=== PATIENT | male | born 1950 | race Caucasian/White ===

== ENCOUNTER 2020-07-29 08:30 | Outpatient (CLI) | payer MEDICARE, OTHER, SELFPAY ==
--- NOTE | ~2020-07-29 | CT_ITS ---
EXAMINATION: CT abdomen wo/w con DATE: 07/29/2020 09:37 INDICATION: Right adrenal mass. TECHNIQUE: Computed tomography (CT) of the abdomen and pelvis was performed without and with 100 mL O mnipaque-350 intravenous contrast. Post contrast imaging was obtained in both early and delayed phase following a standard adrenal mass protocol. Automated exposure control and iterative reconstruction technique were employed. The dose-length product was 1810.98 mGy-cm. COMPARISON: 12/04/2016 FINDINGS: Lung bases are clear. Heart size is normal. Atherosclerotic coronary artery calcific location and aor tic valve calcific lesion. No pericardial or pleural effusion. Again seen is a large gallstone within a normal-appearing gallbladder. No gallbladder wall thickening or pericholecystic inflammatory schwarz e to suggest acute cholecystitis. No intra or extrahepatic biliary ductal dilation. Pancreas, spleen, left adrenal gland and bilateral kidneys are normal. 2.1 m right adrenal mass with attenuation on no ncontrast, early and delayed phases of 12, 74 and 30 6HU respectively using absolute washout of 61% a nd relative washout of 51%, all findings diagnostic of adenoma. There are few scattered colonic diver ticula without adjacent inflammatory change to suggest diverticulitis. The appendix and visualized sm all bowel is unremarkable. Stable appearance of a nonspecific carlos mesentery with groundglass halo s urrounding several normal sized mesenteric lymph nodes. No pathologically enlarged abdominal lymphade nopathy. Moderate lumbar spondylosis. There are bridging osteophytes at multiple levels in the spine, consistent with diffuse idiopathic skeletal hyperostosis (DISH). IMPRESSION: 1. Unchanged 2 cm right adrenal adenoma with characteristic low-attenuation and contrast washout. 2. Cholelithiasis. 3. Nonspecific carlos appearance to the small bowel mesentery which given lack of interval change is o f doubtful clinical significance. Reviewed, dictated and finalized at location B. IER SUPERVISOR IMPRESSION: 1. Unchanged 2 cm right adrenal adenoma with characteristic low-attenuation and contrast washout. 2. Cholelithiasis. 3. Nonspecific carlos appearance to the small bowel mesentery which given lack o f interval change is of doubtful clinical significance.
[2020-07-29 09:06] LABS: Estimated Glomerular Filt Rate > 60
== END 2020-07-29 08:31 | disposition home or self-care (01) ==
PROVIDERS: PCP Internal Medicine; Visit Provider Nurse Practitioner
DX: E27.8 Other specified disorders of adrenal gland (principal); K80.20 Calculus of gallbladder without cholecystitis without obstruction; D35.01 Benign neoplasm of right adrenal gland
CPT/HCPCS: 74170; Q9967

== ENCOUNTER 2023-04-02 10:19 | Outpatient (CLI) | payer MEDICARE, OTHER, SELFPAY ==
--- NOTE | ~2023-04-02 | XR_ITS ---
EXAMINATION: XR lumbar spine 2-3V DATE: 04/02/2023 10:34 INDICATION: Low back pain TECHNIQUE: Anteroposterior and lateral views of the lumbar spine, and cone-down lateral view of the l umbosacral junction were obtained. COMPARISON: 04/06/2019 FINDINGS: There are 3 mm of stable retrolisthesis of L2 on L3 and L3 on L4. The vertebral body height s are maintained. There is moderate loss of intervertebral disc space height at L4-5. There is mild l oss of disc space height at L2-3 and L3-4. Small degenerative osteophytes project from the anterior e ndplates of multiple vertebral bodies. There is moderate facet joint osteoarthritis of the lower lumb ar spine. Mild hip osteoarthritis is noted. . IMPRESSION: 1. Moderate lumbar spondylosis without acute findings or significant interval change. Reviewed, dictated and finalized at location L. USION OPERATOR IMPRESSION: 1. Moderate lumbar spondylosis without acute findings or significant interval c terrie.
== END 2023-04-02 10:20 ==
PROVIDERS: PCP Internal Medicine; Visit Provider Nurse Practitioner
DX: M43.06 Spondylolysis, lumbar region (principal)
CPT/HCPCS: 72100

== ENCOUNTER 2023-04-02 10:36 | Outpatient (CLI) | payer MEDICARE, OTHER, SELFPAY ==
[2023-04-02 19:58] LABS: Alanine Aminotransferase 23 U/L (6-50); Albumin Level 4.3 g/dL (3.5-5.1); Alkaline Phosphatase 104 U/L (38-126); Anion Gap 3 mmol/L (8-16); Aspartate Amino Transferase 36 U/L (17-59); Blood Urea Nitrogen 15 mg/dL (9-20); Calcium 9.4 mg/dL (8.4-10.2); Carbon Dioxide 31 mmol/L (22-30); Chloride 103 mmol/L (98-107); Cholesterol 215 mg/dL (0-200); Estimated Glomerular Filt Rate > 60; Glucose 104 mg/dL (65-110); HDL Direct 39 mg/dL; Potassium 4.3 mmol/L (3.4-5.0); Sodium 137 mmol/L (137-145); Triglycerides 133 mg/dL (<150)
[2023-04-02 20:11] LABS: Creatinine Urine 283.5 mg/dL
[2023-04-02 20:13] LABS: LDL Cholesterol Direct 132 mg/dL
[2023-04-02 20:18] LABS: MALB Creatinine Ratio 8.7 mg/g (0-30); Microalbumin Urine Random 24.7 mg/L (0-16.7)
[2023-04-02 20:21] LABS: Prostate Specific Antigen 0.9 ng/mL (< OR = 4.0)
[2023-04-02 20:43] LABS: Basophils Absolute Auto 0.1 K/mm3 (0.0-0.1); Eosinophils Absolute Auto 0.3 K/mm3 (0-0.3); Eosinophils Percent Auto 3.1 % (0-4.4); Hematocrit 48.4 % (42.0-52.0); Hemoglobin 14.8 g/dL (14.0-18.0); Immature Granulocyte Absolute 0.02 K/mm3 (0.00-0.031); Immature Granulocyte Percent A 0.3 % (0-0.5); Lymphocytes Absolute Auto 2.11 K/mm3 (0.9-3.2); Lymphocytes Percent Auto 26.4 % (18.3-44.2); Mean Corpuscular HGB Conc 30.6 g/dl (32-36); Mean Corpuscular Hemoglobin 27.1 pg (26-34); Mean Corpuscular Volume 88.5 fl (80-100); Mean Platelet Volume 10.5 fl (7.4-10.4); Monocytes Absolute Auto 0.8 K/mm3 (0.1-0.6); Monocytes Percent Auto 9.5 % (2.6-8.5); Neutrophils Absolute Auto 4.8 K/mm3 (1.3-6.7); Neutrophils Percent Auto 59.7 % (45.5-73.1); Platelet Count Result 275 k/mm3 (150-375); Red Blood Count 5.47 M/mm3 (4.6-6.20); Red Cell Distribution Width 13.7 % (11.5-14.5)
[2023-04-02 21:20] LABS: Hemoglobin A1C 5.7 % (<5.7)
== END 2023-04-02 10:37 | disposition home or self-care (01) ==
PROVIDERS: PCP Internal Medicine; Visit Provider Nurse Practitioner
DX: Z12.5 Encounter for screening for malignant neoplasm of prostate (principal); R73.9 Hyperglycemia, unspecified; I10 Essential (primary) hypertension; R73.03 Prediabetes
CPT/HCPCS: 36415; 80053; 80061; 82043; 83036; 84153; 85025; G0103

== ENCOUNTER 2024-02-11 12:30 | Outpatient (CLI) | payer MEDICARE, OTHER, SELFPAY ==
--- NOTE | ~2024-02-11 | XR_ITS ---
EXAMINATION: XR ankle LT min 3V DATE: 02/11/2024 12:47 INDICATION: Left ankle pain and lateral sided abrasion/posterior TECHNIQUE: Anteroposterior, oblique, mortise, and lateral views of the left ankle were obtained. COMPARISON: None. FINDINGS: Internal fixation at the left ankle. This includes a lateral plate and screws and interfragmentary sc rew, the latter at the distal metaphyseal region of the left fibula likely for fixation of a healed f racture. One of the screws extends across the distal tibiofibular syndesmosis into the distal tibial metaphysis. There are also a pair of metallic buttons at either side of the lucent tract extending ac ross the metaphyseal regions of both the distal tibia and fibula for a tightrope type syndesmotic fix ation. No evident instrumentation failure. Alignment is essentially anatomic. No acute fracture. Ther e is osteoarthritis at the left ankle with mild to moderate nonuniform anterior and lateral predomina nt joint space narrowing. There is also a shallow concavity along the medial side of the medial talar dome suggesting a chronic collapsed osteochondral lesion. Small Achilles calcaneal spur and moderate -sized plantar calcaneal spur. There are also few heterotopic ossicles at the plantar aponeurosis. Th ere is focal soft tissue swelling overlying the lateral malleolus. IMPRESSION: 1. Internal fixation at the distal fibular as well as a distal tibiofibular syndesmotic fixation as d etailed above. No acute osseous abnormality. 2. Likely secondary mild to moderate left ankle osteoarthritis with suggestion of a chronic collapsed osteochondral lesion along the medial margin of the talar dome. Reviewed, dictated and finalized at location B. IMPRESSION: 1. Internal fixation at the distal fibular as well as a distal tibiofibular syn desmotic fixation as detailed above. No acute osseous abnormality. 2. Likely secondary mild to moderate left ankle osteoarthritis with suggestion of a chronic collapsed osteochondral lesion along the medial margin of the van r dome.
== END 2024-02-11 12:31 | disposition home or self-care (01) ==
PROVIDERS: PCP Internal Medicine; Visit Provider Nurse Practitioner
DX: S90.529A Blister (nonthermal), unspecified ankle, initial encounter (principal); X58.XXXA Exposure to other specified factors, initial encounter; Z98.890 Other specified postprocedural states
CPT/HCPCS: 73610

== ENCOUNTER 2024-06-24 13:42 | Outpatient (CLI) | payer MEDICARE, OTHER, SELFPAY ==
--- OUTSIDE RECORDS SUMMARY | 2024-06-24 14:32 | XMS_ITS | Referral Summary ---
Author Organization [facility] Address [address] [place] [address] Care Team Providers Care Diesel Retrofit Installer Name Role Phone Michel Collins DO Primary Care Provider [phone] Abhishek Forde MD Unavailable [phone] Amarjit Kelly MD Unavailable Artem White MD Unavailable [phone] RuddTyler MD Unavailable [phone] Allergies No known active allergies Medications lisinopril (PRINIVIL,ZESTRIL) 20 mg tabletIndications: hypertension Take 1 tablet (20 mg total) by mouth 2 (two) times a day 07/01/19 18 Active atorvastatin (LIPITOR) 10 mg tabletIndications: hyperlipidemia Take 1 tablet (10 mg total) by mouth every morning 07/31/19 20 Active polyethylene glycol (MIRALAX) 17 gram packetIndications: constipation Take 1 packet (17 g total) by mouth daily 30 packet 07/19/19 21 Active Additional Information Patient not taking.Reported on 12/31/2022 venlafaxine XR (EFFEXOR-XR) 75 mg 24 hr capsuleIndications :Anxiety with Depression Take 1 capsule (75 mg total) by mouth every morning 09/13/19 21 Active naproxen sodium (Aleve) 220 mg capsuleIndications :Pain Take 440 mg by mouth as needed Active HYDROcodone-acetam inophen ([place]) 5-325 mg per tabletIndications: Pain Take 1 tablet by mouth every 4 (four) hours as needed for pain 30 tablet 09/12/19 23 Active Additional Information Patient not taking.Reported on 12/25/2022 aspirin 325 mg enteric coated tablet Take 1 tablet (325 mg total) by mouth daily 30 tablet 09/12/19 23 Active Additional Information Patient not taking.Reported on 12/31/2022 ketorolac (TORADOL) 10 mg tablet Take 1 tablet (10 mg total) by mouth every 6 (six) hours as needed for pain 20 tablet 09/12/19 23 Active Additional Information Patient not taking.Reported on 12/25/2022 senna-docusate (PERICOLACE) 8.6-50 mg Take 1 tablet by mouth daily 30 tablet 09/12/19 23 Active Additional Information Patient not taking.Reported on 12/31/2022 polyethylene glycol (MIRALAX) 17 gram/dose powder Take 17 g by mouth 3 (three) times a day 1700 g 12/21/19 Active Additional Information Patient not taking.Reported on 12/25/2022 ondansetron ODT (ZOFRAN-ODT) 4 mg disintegrating tablet Take 1 tablet (4 mg total) by mouth every 8 (eight) hours as needed for nausea or vomiting 20 tablet 12/21/19 Active celecoxib (CeleBREX) 100 mg capsule Take 1 capsule (100 mg total) by mouth 2 (two) times a day 09/15/19 24 Active albuterol HFA (PROVENTIL HFA,VENTOLIN HFA,PROAIR HFA) 90 mcg/actuation inhalerIndications :Lower respiratory infection (e.g., bronchitis, pneumonia, pneumonitis, pulmonitis) Inhale 2 puffs every 6 (six) hours as needed for wheezing or shortness of breath 1 each 11/19/19 Active azithromycin (ZITHROMAX) 250 mg tabletIndications: Lower respiratory infection (e.g., bronchitis, pneumonia, pneumonitis, pulmonitis) Take 2 tablets the first day, then 1 tablet daily for 4 days. 6 tablet 11/19/19 24 Active benzonatate (TESSALON) 200 mg capsuleIndications :Lower respiratory infection (e.g., bronchitis, pneumonia, pneumonitis, pulmonitis) Take 1 capsule (200 mg total) by mouth 3 (three) times a day as needed for cough 30 capsule 11/19/19 24 Active Active Problems Problem Noted Date Diagnosed Date Abnormal CT scan, colon 12/25/2022 Assessment & Plan (12/25/2022 1:17 PM CDT): colonoscopy Trimalleolar fracture of ori jalloh, closed, left, initial encounter 09/05/2022 Overview (09/05/2022): Added automatically from request for surgery [id number] History of colonic polyps 09/13/2020 Overview (09/13/2020): Added automatically from request for surgery [id number] Enlarged prostate 08/05/2020 Overview (08/05/2020): Added automatically from request for surgery [id number] Abdominal pain 07/19/2020 Urinary retention due to benign prostatic hyperp lasia 07/19/2020 Constipation due to outlet dysfunction Assessment & Plan (09/13/2020 1:19 PM CDT): Plan to proceed with colonoscopy Leukocytosis 07/19/2020 Sepsis 07/19/2020 Urinary tract infection in male 11/25/2019 Central cord syndrome (CMS/HCC) 08/13/2019 Overview (08/14/2019): Added automatically from request for surgery [id number] Palpitations 08/31/2017 Assessment & Plan (08/31/2017 4:12 AM CDT): Currently resolved. There was associated lightheadedness. EKG showed sinus rhythm. Patient is currently on tele. Will continue to monitor. Trops negative x2. Patient may need Holter monitor at discharge. TSH was normal. HTN (hypertension) 08/31/2017 Assessment & Plan (08/31/2017 4:03 AM CDT): Blood pressure is controlled. Continue lisinopril b.i.d. with hold parameters. Anxiety 08/31/2017 Assessment & Plan (08/31/2017 4:07 AM CDT): Patient complains of being ? always anxious? 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 Patient is feeling overwhelmed. Patient advised to discuss his anxiety with his PCP regarding medications that will not cause significant drowsiness for his anxiety as he needs to wake up 3 times at night to turn his and his 's PCP regarding possible part-time caregiver as he currently is the only caregiver with no support. Chest pain Mesenteric panniculitis Assessment & Plan (09/13/2020 1:18 PM CDT): This has disappeared from the recent CT Immunizations Name Administration Dates Next Due Influenza, Trivalent, Adjuvanted, Intramuscular 03/19/2019 Influenza, Unspecified 02/24/2019 Social History Tobacco Use Types Packs/Day Years Used Date Smoking Tobacco: Never Smokeless Tobacco: Never Tobacco Cessation:Counseling Given: Not Answered Alcohol Use Standard Drinks/Week Comments No 0 (1 standard drink = 0.6 oz pur e alcohol) AUDIT-C Answer Date Recorded Frequency of Alcohol Consumption Not on file 01/01/2023 Q2: How many drinks containi ng alcohol do you have on a typical day when you are drinking? Patient does not drink Frequency of Binge Drinking Not on file 12/2022 Personal Safety Answer Date Recorded Have you ever been in or are you currently in a harmful physical or emotional relationship or is someone making you feel afraid or unsafe? 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 Gender Identity Not on file Sexual Orientation Not on file Last Filed Vital Signs Vital Sign Reading Time Taken Comments Blood Pressure 146/79 12/28/2023 11:21 AM CDT Pulse 78 12/28/2023 11:21 AM CDT Temperature 36.1 ??C (97 ??F) 12/28/2023 11:21 AM CDT Respiratory Rate 16 12/28/2023 11:21 AM CDT Oxygen Saturation 94% 12/28/2023 11:21 AM CDT Inhaled Oxygen Concentration - - Weight 86.2 kg (190 lb) 12/28/2023 11:21 AM CDT Height 167.6 cm (5' 6 ) 12/28/2023 11:21 AM CDT Body Mass Index 30.67 12/28/2023 11:21 AM CDT Plan of Treatment Not on file Medical Devices Implanted Type Area Credit Collection Associate Device Identifier Shelf Expiration Date Model / Serial / Lot Medline [employer] Plate Bone Medline Unite Straight Fibula Tibial 10 Hole [id number] - [id number] Implanted:Qty: 1 on 09/11/2022 by Tyler Contreras MD at [facility] Plate Left: Ankle Medline [employer] [id number] / / Med[employer] Screw Bone Medline Unite L12mm Od2.7mm Foot Ankle Nonlock [id number] - [id number] Implanted:Qty: 1 on 09/11/2022 by Tyler Contreras MD at [facility] Medicine Screw Left: Ankle [employer] [id number] / / [employer] Screw Bone Medline Unite L16mm Od4mm Ankle Cancellous [id number] - [id number] Implanted:Qty: 1 on 09/11/2022 by Tyler Contreras MD at [facility] Screw Left: Ankle Medline [employer] [id number] / / Med[employer] Screw 14mm 3.5mm Bone Medline Unite Foot Ankle Lock [id number] - [id number] Implanted:Qty: 1 on 09/11/2022 by Tyler Contreras MD at [facility] Screw Left: Ankle Medline [employer] [id number] / / Med[employer] Screw Bone Medline Unite L12mm Od3.5mm Foot Ankle Nonlock [id number] - [id number] Implanted:Qty: 3 on 09/11/2022 by Tyler Contreras MD at [facility] Screw Left: Ankle Medline [employer] [id number] / / [employer] Screw Bone Medline Unite L50mm Od3.5mm Nonsterile [id number] - [id number] Implanted:Qty: 1 on 09/11/2022 by Tyler Cnotreras MD at [facility] Screw Left: Ankle Medline [employer] [id number] / / [employer] Tightrope Knotless Kit Endoscopic Instrument Titanium Sterile Ar-8926t - [id number] Implanted:Qty: 1 on 09/11/2022 by Tyler Contreras MD at [facility] Left: Ankle [employer] Inc [id number] 05/26/2026 AR-[id number] / / [id number] [employer] Inc Arthrex Dx Fibertak Needle [place] Suture Sterile Latex Free Ar-8990st - [id number] Implanted:Qty: 1 on 09/11/2022 by Tyler Contreras MD at [facility] Left: Ankle [employer] [id number] 01/24/2027 AR-8990ST / / [id number] Procedures Procedure Name Priority Date/Time Associated Diagnosis Comments COLONOSCOPY 01/01/2023 7:26 AM CDT from Last 3 Months or Most Recently Relevant to Health Maintenance Results * COLONOSCOPY (01/01/2023 7:26 AM CDT) Anatomical Region Laterality Modality Other Narrative Procedure Note Michel Beltran MD - 01/01/2023 7:26 AM CDT [facility] Patient Name: Natalio Morrison Procedure Date: 01/01/2023 7:26 AM Date of : 1950 Admit Type: Outpatient Age: 72 Gender: Male Attending MD: Michel Beltran M.D. Room: [facility] ENDOSCOPY ROOM 2 Note Status: Finalized Patient Profile: Refer to note in patient chart for documentation of history and physical. Procedure: Colonoscopy Indications: Last colonoscopy: September 2020, Abnormal CT of the [place] Referring MD: Michel Collins D.O. Providers: Michel Beltran M.D. Impression: - Hemorrhoids found on perianal exam. - Two 3 to 4 mm polyps in the transverse colon, removed with a cold snare. Resected andretrieved. - Diverticulosis in the sigmoid colon, in the descending colon and in the transverse colon. - The examination was otherwise normal. Recommendation: - Discharge patient to home. - Resume previous diet. - Continue present medications. - Await pathology results. - Repeat colonoscopy in 5 years for surveillance. - Return to primary care physician as previously scheduled. Medicines: Propofol per Anesthesia Complications: No immediate complications. Estimated Blood Loss: Estimated blood loss: none. Procedure: Pre-Anesthesia Assessment: - This assessment was completed [Time ofAssessment] prior to the administration of sedation. The benefits, risks and alternatives of theprocedure and sedation were discussed and informed consentwas obtained. All questions were answered. Please referto the signed informed consent document in the medical record. The bowel preparation used was Miralax via single dose instruction. The bowel preparation used was bisacodyl tablets via single dose instruction.The scope was passed under direct vision. TheColonoscope [id number] was introduced through the anus and advanced to the the cecum, identified by appendiceal orifice and ileocecal valve. The colonoscopy was performed without difficulty. The patient tolerated the procedure well. The qualityof the bowel preparation was good. The ileocecalvalve, appendiceal orifice, and rectum werephotographed. Findings: Hemorrhoids were found on perianal exam. Two sessile polyps were found in the transverse colon. The polypswere 3 to 4 mm in size. These polyps were removed with a cold snare.Resection and retrieval were complete. Verification of patient identificationfor the specimen was done by the physician and nurse using the patient's name and date. Estimated blood loss was minimal. Multiple small and large-mouthed diverticula were found in thesigmoid colon, descending colon and transverse colon. The exam was otherwise without abnormality. Electronically signed by Michel Beltran M.D. Michel Beltran M.D. 01/01/2023 8:37:25 AM Number of Addenda: 0 Note Initiated On: 01/01/2023 7:26 AM Procedure Code(s): --- Professional --- 74427, Colonoscopy, flexible; with removal of tumor(s), polyp(s), or other lesion(s) by snare technique --- Technical --- 72663, Colonoscopy, flexible; with removal of tumor(s), polyp(s), or other lesion(s) by snare technique Diagnosis Code(s): --- Professional --- R93.3, Abnormal findings on diagnostic imaging of other parts of digestive tract K57.30, Diverticulosis of large intestine without perforation orabscess without bleeding D12.3, Benign neoplasm of transverse colon (hepatic flexure orsplenic flexure) K64.9, Unspecified hemorrhoids --- Technical --- R93.3, Abnormal findings on diagnostic imaging of other parts of digestive tract K57.30, Diverticulosis of large intestine without perforation orabscess without bleeding D12.3, Benign neoplasm of transverse colon (hepatic flexure orsplenic flexure) K64.9, Unspecified hemorrhoids CPT copyright 2020 [employer]. All rights reserved. The codes documented in this report are preliminary and upon memorandum statement clerk reviewmay be revised to meet current compliance requirements. Recognized by the [employer] for promoting quality in endoscopy Michel Beltran MD ENDOSCOPY PROCEDURES Final Re sult from Last 3 Months or Most Recently Relevant to Health Maintenance Insurance MEDICARE [facility] CHOICE PLUS MEDICARE [facility] CHOICE PLUS [address] [place] [phone] MEDICARE [employer] Advance Directives For more information, please contact: [phone] * Full Code (Latest Code Status on File) Date Activated Date Inactivated Comments 01/01/2023 7:27 AM 01/01/2023 1:38 PM * Full Code Date Activated Date Inactivated Comments 01/01/2023 7:27 AM 01/01/2023 7:27 AM * Full Code Date Activated Date Inactivated Comments 10/10/2020 9:42 AM 10/10/2020 3:40 PM * Full Code Date Activated Date Inactivated Comments 07/19/2020 1:56 AM 07/19/2020 10:56 PM * Full Code Date Activated Date Inactivated Comments 08/14/2019 11:42 AM 08/14/2019 10:57 PM Healthcare Agents on File Name Relationship Healthcare Agent Sherrie shea Communication Noa Morrison Spouse Health Care Agent Care Teams Diesel Retrofit Installer Relationship Specialty Start Date End Date Michel Collins DO PCP - General 08/25/16 Abhishek Forde MD [address] [place] [address] Consulting Physician Cardiology 08/31/17 Amarjit Kelly MD [address] [place] [address] Consulting Physician Psychiatry 08/31/17 Artem White MD [address] [place] [address] Consulting Physician Urology 07/19/20 Tyler Contreras MD [address] [place] [address] Consulting Physician Orthopedic Surgery 09/11/22
--- OUTSIDE RECORDS SUMMARY | 2024-06-24 14:32 | XMS_ITS | Clinical Summary ---
Author Organization [facility] Address [address] [place] [address] Care Team Providers Care Instructional Support Technician Name Role Phone Michel Collins DO Primary Care Provider [phone] Abhishek Forde MD Unavailable [phone] Amarjit Kelly MD Unavailable Artem White MD Unavailable AlvaradoTyler MD Unavailable [phone] Allergies No known active allergies Medications lisinopril [...] by mouth as needed Active HYDROcodone-acetam inophen (Thelma) 5-325 mg per tabletIndications: Pain Take 1 [...] (09/05/2022): Added automatically from request for surgery [id number] History of colonic polyps 09/13/2020 Overview (09/13/2020): Added automatically from request for surgery [id number] Enlarged prostate 08/05/2020 Overview (08/05/2020): Added automatically from request for surgery [id number] Abdominal pain 07/19/2020 Urinary retention due to benign prostatic hyperp lasia 07/19/2020 Constipation due to outlet dysfunction Assessment & Plan (09/13/2020 1:19 PM CDT): Plan to proceed with colonoscopy Leukocytosis 07/19/2020 Sepsis 07/19/2020 Urinary tract infection in male 11/25/2019 Central cord syndrome (CMS/HCC) 08/13/2019 Overview (08/14/2019): Added automatically from request for surgery [id number] Palpitations 08/31/2017 Assessment & Plan (08/31/2017 4:12 [...] Trivalent, Adjuvanted, Intramuscular 03/19/2019 Influenza, Unspecified 02/24/2019 Surgical History Surgery Date Site/Laterality Comments TONSILLECTOMY 05/27/1969 - 05/26/1970 Bilateral COLONOSCOPY 10/10/2020 CATARACT EXTRACTION W/ INTRAOCULAR LENS IMPLANT 05/27/2019 - 05/26/2020 Bilateral TRANSURETHRAL RESECTION OF PROSTATE 08/25/2020 SKIN CANCER EXCISION Skin CA neck s/p excision 1970s ANKLE FRACTURE SURGERY 05/27/2022 - 05/26/2023 Left COLONOSCOPY 01/01/2023 Medical History Medical History Date Comments Hypertension Dxd 2014 Hyperlipidemia Treated with sta tin GERD (gastroesophageal reflux disease) Anxiety Obesity History of skin cancer Skin CA n elizabeth s/p excision Family History Medical History Relation Name Comments Heart disease Father Anesthesia problems Other Relation Name Status Comments Father Other Social History Tobacco Use Types Packs/Day Years [...] on file 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 Gender Identity Not on file Sexual Orientation Not on file Obstetrics History Last Filed Vital Signs Vital Sign Reading [...] 12/28/2023 11:21 AM CDT Plan of Treatment Health Maintenance Due Date Last Done Comments Depression Screening 1950 Hepatitis C Screening 1950 DTaP/Tdap/Td Vaccine (1 - Tdap) 1960 Hepatitis B Screening 10/23/1967 Zoster Vaccine (1 of 2) 10/23/1999 Pneumococcal vaccine 65+ (1 of 1 - PCV) 2014 Well Visit 65+ 2014 Fall Risk Assessment 01/02/2024 01/01/2023 Influenza Vaccine (#1) 2024 9, 02/24/2019, 02/17/2017, Additional history exists Colon Cancer Screening-Colonoscopy 01/01/2033 01/01/2023, 10/10/2020 Colon Cancer Screening-CT Colonography Discontinued 01/01/2023, 10/10/2020 Colon Cancer Screening-DNA Stool Discontinued 01/02/20 23, 10/10/2020 Colon Cancer Screening-FIT Discontinued 01/01/2023, Colon Cancer Screening-Sigmoidoscopy Discontinued 01/01/2023, 10/10/2020 Medical Devices Implanted Type Area Boring Machine Set Up Operator Device Identifier Shelf Expiration Date Model / Serial / Lot Skemaz Plate Bone Medline Unite Straight Fibula Tibial 10 Hole [id number] - [id number] Implanted:Qty: 1 on 09/11/2022 by Tyler Contreras MD at [facility] Medicine Plate Left: Ankle [employer] [id number] / / [employer] Screw Bone Medline Unite L12mm Od2.7mm Foot Ankle Nonlock [id number] - [id number] Implanted:Qty: 1 on 09/11/2022 by Tyler Contreras MD at [facility] Screw Left: Ankle [employer] [id number] / / [employer] Screw Bone Medline Unite L16mm Od4mm Ankle Cancellous [id number] - [id number] Implanted:Qty: 1 on 09/11/2022 by Tyler Contreras MD at [facility] Screw Left: Ankle [employer] [id number] / / [employer] Screw 14mm 3.5mm Bone Medline Unite Foot Ankle Lock [id number] - [id number] Implanted:Qty: 1 on 09/11/2022 by Tyler Contreras MD at [facility] Screw Left: Ankle [employer] [id number] / / [employer] Screw Bone Medline Unite L12mm Od3.5mm Foot Ankle Nonlock [id number] - [id number] Implanted:Qty: 3 on 09/11/2022 by Tyler Contreras MD at [facility] Screw Left: Ankle [employer] [id number] / / [employer] Screw Bone Medline Unite L50mm Od3.5mm Nonsterile [id number] - [id number] Implanted:Qty: 1 on 09/11/2022 by Tyler Contreras MD at [facility] Screw Left: Ankle Medline TBS Inc [id number] / / [employer] Tightrope Knotless Kit Endoscopic Instrument Titanium Sterile Ar-[id number] - [id number] Implanted:Qty: 1 on 09/11/2022 by Tyler Contreras MD at [facility] Left: Ankle [employer] Inc [id number] 05/26/2026 AR-8926T / / [id number] Ar[employer]rex Inc Arthrex Dx Fibertak Needle Welch Suture Sterile Latex Free Ar-8990st - [id number] Implanted:Qty: 1 on 09/11/2022 by Tyler Contreras MD at [facility] Left: Ankle Ar[employer] Inc [id number] 01/24/2027 [id number] / / [id number] Procedures Procedure Name Priority Date/Time Associated Diagnosis Comments COLONOSCOPY 01/01/2023 7:26 AM CDT from Last 3 Months or Most Recently Relevant to Health Maintenance Results * COLONOSCOPY (01/01/2023 7:26 AM CDT) Anatomical Region Laterality Modality Other Narrative Procedure Note Michel Beltran MD - 01/01/2023 7:26 AM CDT [facility] Patient Name: Natalio Morrison Procedure Date: 01/01/2023 7:26 AM Date of : 1950 Admit Type: Outpatient Age: 72 Gender: Male Attending MD: Michel Beltran M.D. Room: [facility] ENDOSCOPY ROOM 2 Note Status: Finalized [...] scope was passed under direct vision. TheColonoscope [id number] was introduced through the anus and advanced [...] 7:26 AM Procedure Code(s): --- Professional --- 47395, Colonoscopy, flexible; with removal of tumor(s), polyp(s), or other lesion(s) by snare technique --- Technical --- 06784, Colonoscopy, flexible; with removal of tumor(s), polyp(s), [...] flexure) K64.9, Unspecified hemorrhoids CPT copyright 2020 [employer]. All rights reserved. The codes documented in this report are preliminary and upon gauge controller reviewmay be revised to meet current compliance requirements. Recognized by the [employer] for promoting quality in endoscopy Michel Beltran MD ENDOSCOPY PROCEDURES Final Re sult from Last 3 Months or Most Recently Relevant to Health Maintenance Insurance MEDICARE [facility] CHOICE PLUS MEDICARE [facility] CHO[facility] PLUS MEDICARE [facility] [employer] Advance Directives For more information, please contact: [phone] * Full Code (Latest Code Status on [...] Agents on File Name Relationship Healthcare Agent Relationshi p Communication Noa Prince Spouse Health Care Agent Care Teams Instructional Support Technician Relationship Specialty Start Date End Date Michel Collins DO PCP - General 08/25/16 Abhishek Forde MD [address] [place] [address] Consulting Physician Cardiology 08/31/17 Amarjit Kelly MD [address] [place] [address] Consulting Physician Psychiatry 08/31/17 Artem White MD [address] [place] [address] Consulting Physician Urology 07/19/20 Tyler Contreras MD [address] [place] [address] Consulting Physician Orthopedic Surgery 09/11/22
[2024-06-24 19:42] LABS: Basophils Absolute Auto 0.1 K/mm3 (0.0-0.1); Eosinophils Absolute Auto 0.2 K/mm3 (0-0.3); Eosinophils Percent Auto 2.1 % (0-4.4); Hematocrit 52.9 % (42.0-52.0); Hemoglobin 16.6 g/dL (14.0-18.0); Immature Granulocyte Absolute 0.03 K/mm3 (0.00-0.031); Immature Granulocyte Percent A 0.3 % (0-0.5); Lymphocytes Absolute Auto 2.62 K/mm3 (0.9-3.2); Lymphocytes Percent Auto 30.5 % (18.3-44.2); Mean Corpuscular HGB Conc 31.4 g/dl (32-36); Mean Corpuscular Hemoglobin 28.7 pg (26-34); Mean Corpuscular Volume 91.4 fl (80-100); Mean Platelet Volume 9.9 fl (7.4-10.4); Monocytes Percent Auto 12.1 % (2.6-8.5); Neutrophils Absolute Auto 4.6 K/mm3 (1.3-6.7); Platelet Count Result 234 k/mm3 (150-375); Red Blood Count 5.79 M/mm3 (4.6-6.20); Red Cell Distribution Width 12.1 % (11.5-14.5); White Blood Count 8.6 K/mm3 (4.5-10.0)
[2024-06-24 19:53] LABS: Alanine Aminotransferase 22 U/L (6-50); Albumin Level 4.2 g/dL (3.5-5.1); Alkaline Phosphatase 116 U/L (38-126); Anion Gap 9 mmol/L (4-12); Aspartate Amino Transferase 29 U/L (17-59); Bilirubin,Total 0.8 mg/dL (0.2-1.3); Blood Urea Nitrogen 17 mg/dL (9-20); Calcium 9.5 mg/dL (8.4-10.2); Carbon Dioxide 31 mmol/L (22-30); Chloride 100 mmol/L (98-107); Cholesterol 194 mg/dL (0-200); Estimated Glomerular Filt Rate > 60; Glucose 94 mg/dL (65-110); HDL Direct 42 mg/dL; Potassium 4.6 mmol/L (3.4-5.0); Sodium 140 mmol/L (137-145); Triglycerides 135 mg/dL (<150)
[2024-06-24 20:04] LABS: LDL Cholesterol Direct 129 mg/dL
[2024-06-24 20:23] LABS: Prostate Specific Antigen 0.9 ng/mL (< OR = 4.0)
[2024-06-24 20:41] LABS: Microalbumin Urine Random 17.3 mg/L (0-16.7)
[2024-06-24 20:46] LABS: Creatinine Urine 192.4 mg/dL
[2024-06-24 20:54] LABS: Hemoglobin A1C 6.4 % (<5.7)
== END 2024-06-24 13:43 | disposition home or self-care (01) ==
LOC: ANHGOSHLAB 13:45
PROVIDERS: PCP Internal Medicine; Visit Provider Nurse Practitioner
DX: Z12.5 Encounter for screening for malignant neoplasm of prostate (principal); E78.5 Hyperlipidemia, unspecified; I10 Essential (primary) hypertension; R73.03 Prediabetes
CPT/HCPCS: 36415; 80053; 80061; 82043; 83036; 84153; 85025; G0103

== ENCOUNTER 2024-10-29 14:01 | Outpatient (CLI) | payer MEDICARE, OTHER, SELFPAY ==
--- NOTE | 2024-10-29 14:16 | ECHO_ITS ---
Patient Info Name: Marko Morrison Age: 74 years : 1950 Gender: Male Ht: 66 in Wt: 195 lbs BSA: 2.06 m2 HR: 88 bpm BP: 152 / 73 mmHg Technical Quality: Good Exam Date: 10/29/2024 2:21 PM Patient Status: O Admit Date: 10/29/2024 Exam Type: CA echo doppler color flow Complete two-dimensional, color flow and Doppler transthoracic echocardiogram is performed. Rn Wellness: Georgina Smith Attending Provider: Sheree Urena Summary 1. Complete two-dimensional, color flow and Doppler transthoracic echocardiogram is performed. 2. Left ventricular chamber dimension is normal. 3. Left ventricular systolic function is hyperdynamic, estimated at >70. 4. There is mild concentric increased left ventricular wall thickness. 5. The left ventricular diastolic function is grade I diastolic dysfunction. 6. E/e' 7 is not elevated. 7. There is moderate aortic valve sclerosis. 8. There is very mild aortic valve stenosis with a peak velocity of 222 cm/s, mean gradient of 12 mmHg, and aortic valve area of 2.2 cm2. 9. Mild pulmonary hypertension, estimated pulmonary arterial systolic pressure is 41 mmHg. 10. There is trace pulmonic regurgitation. 11. The prox ascending aorta size is borderline dilated at 4.1 cm. Left Ventricle E/e' 7 is not elevated. Left ventricular chamber dimension is normal. Left ventricular systolic function is hyperdynamic, estimated at >70. There is mild concentric increased left ventricular wall thickness. The left ventricular diastolic function is grade I diastolic dysfunction. Right Ventricle Right ventricular chamber dimension is normal. Right ventricular systolic function is normal. Left Atria Left atrial chamber dimension is normal. Right Atria Right atrial chamber dimension is normal. Aortic Valve The aortic valve is trileaflet. There is moderate aortic valve sclerosis. There is very mild aortic valve stenosis with a peak velocity of 222 cm/s, mean gradient of 12 mmHg, and aortic valve area of 2.2 cm2. There is no aortic valve regurgitation. Pulmonic Valve There is trace pulmonic regurgitation. Mitral Valve There is no mitral valve stenosis. There is no mitral valve regurgitation. Tricuspid Valve There is no tricuspid valve regurgitation. Mild pulmonary hypertension, estimated pulmonary arterial systolic pressure is 41 mmHg. Pericardium/Pleural There is no pericardial effusion. Inferior Vena Cava Normal inferior vena cava with >50% collapse upon inspiration consistent with normal right atrial pressure, 5 mmHg. Aorta The aortic root size at the sinus of Valsalva is normal. The prox ascending aorta size is borderline dilated at 4.1 cm. Left Ventricular Outflow Tract Name Value Normal LVOT 2D LVOT Diameter 2.1 cm LVOT Doppler LVOT Peak Velocity 122 cm/s LVOT Peak Gradient 6 mmHg LVOT Mean Gradient 4 mmHg LVOT VTI 24 cm LVOT VTI/AV VTI Ratio 0.6 LVOT Stroke Volume 83 ml LVOT CO 18.7 l/min LVOT CI 9.1 l/min/m2 Pulmonic Valve Name Value Normal PV Doppler PV Peak Velocity 114 cm/s PV Peak Gradient 5 mmHg Mitral Valve Name Value Normal MV Diastolic Function MV E Peak Velocity 53 cm/s MV A Peak Velocity 86 cm/s MV E/A 0.6 MV Decel Time (PW) 189 ms MV Annular TDI MV E/e' (Septal) 7.5 MV E/e' (Lateral) 7.8 MV E/e' (Average) 7.7 Tricuspid Valve Name Value Normal TV Regurgitation Doppler TR Peak Velocity 299 cm/s TR Peak Gradient 24 mmHg Estimated PAP/RSVP RA Pressure 5 mmHg <=5 PA Systolic Pressure 41 mmHg <36 RV Systolic Pressure 41 mmHg <36 TV Annular TDI TV Lateral Lacy s' Velocity 14.8 cm/s >=9.5 Aorta Name Value Normal Ascending Aorta Ao Root Diameter (MM) 3.5 cm Ao Root Diam Index (MM) 1.7 cm/m2 Aortic Valve Name Value Normal AV Doppler AV Peak Velocity 222 cm/s AV Peak Gradient 20 mmHg AV Mean Gradient 12 mmHg AV VTI 37 cm AV Area (Cont Eq VTI) 2.2 cm2 >=3.0 AV Area (Cont Eq Harpal) 1.9 cm2 AV DI (Harpal) 0.55 AV Regurgitation 2D LVOT Area 3.5 cm2 Ventricles Name Value Normal LV Dimensions 2D/MM IVS Diastolic Thickness (2D) 1.2 cm 0.6-1.0 LVID Diastole (2D) 4.1 cm 4.2-5.8 LVIW Diastolic Thickness (2D) 1.2 cm 0.6-1.0 LVID Systole (2D) 2.8 cm 2.5-4.0 LVOT Diameter 2.1 cm LV Mass (2D Cubed) 170.91 g 88.00-224.00 LV Mass Index (2D Cubed) 83 g/m2 49-115 Relative Wall Thickness (2D) 0.59 <=0.42 LV Fractional Shortening/Ejection Fraction 2D/MM LV Fractional Shortening (2D) 32 % 25-43 LV EF (2D Teichholz) 61 % LV Diastolic Volume (4C MOD) 95 ml LV EF (4C MOD) 79 % LV Diastolic Volume (2C MOD) 61 ml LV EF (2C MOD) 71 % LV Diastolic Volume (BP MOD) 75 ml 62-150 LV Diastolic Volume Index (BP MOD) 36 ml/m2 34-74 LV Systolic Volume (BP MOD) 19 ml 21-61 LV Systolic Volume Index (BP MOD) 9 ml/m2 11-31 LV EF (BP MOD) 74 % 52-72 LV Diastolic Length (4C) 8.5 cm LV Systolic Length (4C) 6.1 cm LV Stroke Volume (4C MOD) 75 ml RV Dimensions 2D/MM RVID Diastole (2D) 3.9 cm 2.1-3.5 Atria Name Value Normal LA Dimensions LA Dimension (MM) 0.0 cm 3.0-4.0 LA Volume (4C A-L) 45 ml LA Volume (BP A-L) 41 ml RA Dimensions RA Systolic Major [place] Length (4C) 4.3 cm 2.1-2.7 RA Area (4C) 11.3 cm2 <=18.0 Report Signatures
--- OUTSIDE RECORDS SUMMARY | 2024-10-29 14:45 | XMS_ITS | Referral Summary ---
Author Organization [facility] Address [address] [place] [address] Care Team Providers Care Gym Attendant Name Role Phone Michel Collins DO Primary Care Provider [phone]- [phone] Abhishek Forde MD Unavailable [phone] Amarjit Kelly MD Unavailable Artem White MD Unavailable [phone] DianeTyler MD Unavailable [phone] Allergies No known active allergies Medications lisinopril [...] Active Additional Information Patient not taking.Reported on 07/22/2024 venlafaxine XR (EFFEXOR-XR) 75 mg 24 hr capsuleIndications :Anxiety with Depression Take 1 capsule (75 mg total) by mouth every morning 09/13/19 21 Active naproxen sodium (Aleve) 220 mg capsuleIndications :Pain Take 440 mg by mouth as needed Active HYDROcodone-acetam inophen (Tiger) 5-325 mg per tabletIndications: Pain Take 1 tablet by mouth every 4 (four) hours as needed for pain 30 tablet 09/12/19 23 Active Additional Information Patient not taking.Reported on 07/22/2024 aspirin 325 mg enteric coated tablet Take 1 tablet (325 mg total) by mouth daily 30 tablet 09/12/19 23 Active Additional Information Patient not taking.Reported on 07/22/2024 ketorolac (TORADOL) 10 mg tablet Take 1 tablet (10 mg total) by mouth every 6 (six) hours as needed for pain 20 tablet 09/12/19 23 Active Additional Information Patient not taking.Reported on 07/22/2024 senna-docusate (PERICOLACE) 8.6-50 mg Take 1 tablet by mouth daily 30 tablet 09/12/19 23 Active Additional Information Patient not taking.Reported on 12/31/2022 polyethylene glycol (MIRALAX) 17 gram/dose powder Take 17 g by mouth 3 (three) times a day 1700 g 12/21/19 23 Active Additional Information Patient not taking.Reported on 07/22/2024 ondansetron ODT (ZOFRAN-ODT) 4 mg disintegrating tablet Take 1 tablet (4 mg total) by mouth every 8 (eight) hours as needed for nausea or vomiting 20 tablet 12/21/19 23 Active Additional Information Patient not taking.Reported on 07/22/2024 celecoxib (CeleBREX) 100 mg capsule Take 1 capsule (100 mg total) by mouth 2 (two) times a day 09/15/19 24 Active albuterol HFA (PROVENTIL HFA,VENTOLIN HFA,PROAIR HFA) 90 mcg/actuation inhalerIndications :Lower respiratory infection (e.g., bronchitis, pneumonia, pneumonitis, pulmonitis) Inhale 2 puffs every 6 (six) hours as needed for wheezing or shortness of breath 1 each 11/19/19 24 Active Additional Information Patient not taking.Reported on 07/22/2024 azithromycin (ZITHROMAX) 250 mg tabletIndications: Lower respiratory infection (e.g., bronchitis, pneumonia, pneumonitis, pulmonitis) Take 2 tablets the first day, then 1 tablet daily for 4 days. 6 tablet 07/22/19 25 Active benzonatate (TESSALON) 200 mg capsuleIndications :Lower respiratory infection (e.g., bronchitis, pneumonia, pneumonitis, pulmonitis) Take 1 capsule (200 mg total) by mouth 3 (three) times a day as needed for cough 30 capsule 07/22/19 25 Active Active Problems Problem Noted Date Diagnosed Date Abnormal CT scan, colon 12/25/2022 Assessment & Plan (12/25/2022 1:17 PM CDT): colonoscopy Trimalleolar fracture of ank le, closed, left, initial encounter 09/05/2022 Overview (09/05/2022): Added automatically from request for surgery [id number] History of colonic polyps 09/13/2020 Overview (09/13/2020): Added automatically from request for surgery [id number] Enlarged prostate 08/05/2020 Overview (08/05/2020): Added automatically from request for surgery [id number] Abdominal pain 07/19/2020 Urinary retention due to benign prostatic hyperp lasia 07/19/2020 Constipation due to outlet dysfunction Assessment & Plan (09/13/2020 1:19 PM CDT): Plan to proceed with colonoscopy Leukocytosis 07/19/2020 Sepsis 07/19/2020 Urinary tract infection in male 11/25/2019 Central cord syndrome 08/13/2019 Overview (08/14/2019): Added automatically from request for surgery [id number] Palpitations 08/31/2017 Assessment & Plan (08/31/2017 4:12 [...] 4:07 AM CDT): Patient complains of being a lways anxious due to being the primary caregiver for [...] has disappeared from the recent CT Immunizations Immunization Administration Dates Next Due Influenza, Trivalent, Adjuvanted, [...] on file 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 Gender Identity Not on file Sexual Orientation Not on file Last Filed Vital Signs Vital Sign Reading Time Taken Comments Blood Pressure 142/82 07/22/2024 10:50 AM ERECTOR OPERATOR Pulse 93 07/22/2024 10:50 AM ERECTOR OPERATOR Temperature 36.5 C (97.7 F) 07/22/2024 10:50 AM ERECTOR OPERATOR Respiratory Rate 24 07/22/2024 10:50 AM ERECTOR OPERATOR Oxygen Saturation 95% 07/22/2024 10:50 AM ERECTOR OPERATOR Inhaled Oxygen Concentration - - Weight 89.8 kg (198 lb) 07/22/2024 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 Plate Left: Ankle [employer] [id number] / / [employer] Screw Bone Medline Unite L12mm Od2.7mm Foot Ankle Nonlock [id number] - [id number] Implanted:Qty: 1 on 09/11/2022 by Tyler Contreras MD at [facility] Screw Left: Ankle [employer] Inc [id number] / / [email or web address] Screw Bone Medline Unite L16mm Od4mm Ankle Cancellous [id number] - [id number] Implanted:Qty: 1 on 09/11/2022 by Tyler Contreras MD at [facility] Screw Left: Ankle [employer] [id number] / / [email or web address] Screw 14mm 3.5mm Bone Medline Unite Foot Ankle Lock [id number] - [id number] Implanted:Qty: 1 on 09/11/2022 by Tyler Contreras MD at [facility] Screw Left: Ankle [employer] [id number] / / [email or web address] Screw Bone Medline Unite L12mm Od3.5mm Foot Ankle Nonlock [id number] - [id number] Implanted:Qty: 3 on 09/11/2022 by Tyler Contreras MD at [facility] Screw Left: Ankle [employer] Inc [id number] / / [email or web address] Screw Bone Medline Unite L50mm Od3.5mm Nonsterile [id number] - [id number] Implanted:Qty: 1 on 09/11/2022 by Tyler Contreras MD at [facility] Screw Left: Ankle [employer] [id number] / / [employer] Tightrope Knotless Kit Endoscopic Instrument Titanium Sterile Ar-8926t - [id number] Implanted:Qty: 1 on 09/11/2022 by Tyler Contreras MD at [facility] Left: Ankle [employer] Inc [id number] 05/26/2026 AR-8926T / / [id number] Ar[employer]rex Inc Arthrex Dx Fibertak Needle [place] Suture Sterile Latex Free Ar-8990st - [id number] Implanted:Qty: 1 on 09/11/2022 by Tyler Contreras MD at [facility] Left: Ankle [employer] Inc [id number] 01/24/2027 AR-8990ST / / [id number] Procedures Procedure Name Priority Date/Time Associated Diagnosis Comments COLONOSCOPY 01/01/2023 7:26 AM CDT from Last 3 Months or Most Recently Relevant to Health Maintenance Results * COLONOSCOPY (01/01/2023 7:26 AM CDT) Anatomical Region Laterality Modality Other Narrative Procedure Note Michel Beltran MD - 01/01/2023 7:26 AM CDT [facility] Patient Name: Natalio Morrison Procedure Date: 01/01/2023 7:26 AM Date of : 1950 Admit Type: Outpatient Age: 72 Gender: Male Attending MD: Michel Beltran M.D. Room: [facility] ENDOSCOPY ROOM 2 Note Status: Finalized [...] scope was passed under direct vision. TheColonoscope [id number] was introduced through the anus and advanced [...] 7:26 AM Procedure Code(s): --- Professional --- 77001, Colonoscopy, flexible; with removal of tumor(s), polyp(s), or other lesion(s) by snare technique --- Technical --- 16710, Colonoscopy, flexible; with removal of tumor(s), polyp(s), [...] flexure) K64.9, Unspecified hemorrhoids CPT copyright 2020 [employer]. All rights reserved. The codes documented in this report are preliminary and upon attendance secretary reviewmay be revised to meet current compliance requirements. Recognized by the [employer] for promoting quality in endoscopy Michel Beltran MD ENDOSCOPY PROCEDURES Final Re sult from Last 3 Months or Most Recently Relevant to Health Maintenance Insurance MEDICARE [facility] CHOICE PLUS MEDICARE [facility] CHOICE PLUS [address] [place] [id number] MEDICARE [facility] [employer] PPO Advance Directives For more information, please contact: [phone] * Full Code (Latest Code Status on [...] Relationship Healthcare Agent Relationshi p Communication Noa Morrison Spouse Health Care Agent Care Teams Gym Attendant Relationship Specialty Start Date End Date Michel Collins DO PCP - General 08/25/16 Abhishek Forde MD [address] [place] [address] Consulting Physician Cardiology 08/31/17 Amarjit Kelly MD [address] [place] [address] Consulting Physician Psychiatry 08/31/17 Artem White MD [address] [place] [address] Consulting Physician Urology 07/19/20 Tyler Contreras MD [address] [place] [address] Consulting Physician Orthopedic Surgery 09/11/22
--- OUTSIDE RECORDS SUMMARY | 2024-10-29 14:45 | XMS_ITS | Clinical Summary ---
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 Name Role Phone Michel Collins DO Primary Care Provider [phone] Abhishek Forde MD Unavailable [phone] Amarjit Kelly MD Unavailable Artem White MD Unavailable [phone] DianeTyler MD Unavailable [phone] Allergies No known active allergies Medications lisinopril [...] by mouth as needed Active HYDROcodone-acetam inophen ([place]) 5-325 mg per tabletIndications: Pain Take 1 [...] (09/05/2022): Added automatically from request for surgery [id number] History of colonic polyps 09/13/2020 Overview (09/13/2020): Added automatically from request for surgery [id number] Enlarged prostate 08/05/2020 Overview (08/05/2020): Added automatically from request for surgery [id number] Abdominal pain 07/19/2020 Urinary retention due to benign prostatic hyperp lasia 07/19/2020 Constipation due to outlet dysfunction Assessment & Plan (09/13/2020 1:19 PM CDT): Plan to proceed with colonoscopy Leukocytosis 07/19/2020 Sepsis 07/19/2020 Urinary tract infection in male 11/25/2019 Central cord syndrome 08/13/2019 Overview (08/14/2019): Added automatically from request for surgery [id number] Palpitations 08/31/2017 Assessment & Plan (08/31/2017 4:12 [...] cancer Skin CA n elizabeth s/p excision 1970s Family History Medical History Relation Name Comments [...] on file Legal Sex Male 8:21 AM [employer] Gender Identity Not on file Sexual Orientation Not on file Obstetrics History Last Filed Vital Signs Vital Sign Reading Time Taken Comments Blood Pressure 142/82 07/22/2024 10:50 AM [employer] Pulse 93 07/22/2024 10:50 AM [employer] Temperature 36.5 C (97.7 F) 07/22/2024 10:50 AM [employer] Respiratory Rate 24 07/22/2024 10:50 AM [employer] Oxygen Saturation 95% 07/22/2024 10:50 AM [employer] Inhaled Oxygen Concentration - - Weight 89.8 kg (198 lb) 07/22/2024 10:50 AM [employer] Height 167.6 cm (5' 6) 12/28/2023 11:21 AM CDT Body Mass Index 31.96 12/28/2023 11:21 AM CDT Plan of Treatment Health Maintenance Due Date Last Done Comments Depression Screening 1950 Hepatitis C Screening 1950 DTaP/Tdap/Td Vaccine (1 - Tdap) 1960 Hepatitis B Screening 10/23/1967 Pneumococcal vaccine 65+ (1 of 1 - PCV) 10/23/1999 Zoster Vaccine (1 of 2) 10/23/1999 Well Visit 65+ 2014 Fall Risk Assessment 01/02/2024 01/01/2023 Influenza Vaccine (Season Ended) 2025 03/19/2019, 02/24/2019, 02/17/2017, Additional history exists Colon Cancer Screening-Colonoscopy 01/01/2033 01/01/2023, 10/10/2020 Colon Cancer Screening-CT Colonography Discontinued 01/01/2023, 10/10/2020 Colon Cancer Screening-DNA Stool Discontinued 01/02/20 23, 10/10/2020 Colon Cancer Screening-FIT Discontinued 01/01/2023, Colon Cancer Screening-Sigmoidoscopy Discontinued 01/01/2023, 10/10/2020 Medical Devices Implanted 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 Device Identifier Shelf Expiration Date Model / Serial / Lot Indigeo Virtus Plate Bone Medline Unite Straight Fibula Tibial 10 Hole [id number] - [id number] Implanted:Qty: 1 on 09/11/2022 by Tyler Contreras MD at [facility] Plate Left: Ankle [employer] [id number] / / [employer] Screw Bone Medline Unite L12mm Od2.7mm Foot Ankle Nonlock [id number] - [id number] Implanted:Qty: 1 on 09/11/2022 by Tyler Contreras MD at [facility] Screw Left: Ankle [employer] [id number] / / [employer] Screw Bone Medline Unite L16mm Od4mm Ankle Cancellous [id number] - [id number] Implanted:Qty: 1 on 09/11/2022 by Tyler Contreras MD at [facility] Screw Left: Ankle [employer] [id number] / / [employer] Screw 14mm 3.5mm Bone Medline Unite Foot Ankle Lock [id number] - [id number] Implanted:Qty: 1 on 09/11/2022 by Tyler Contreras MD at [facility] Screw Left: Ankle [employer] [id number] / / [employer] Screw Bone Medline Unite L12mm Od3.5mm Foot Ankle Nonlock [id number] - [id number] Implanted:Qty: 3 on 09/11/2022 by Tyler Contreras MD at [facility] Screw Left: Ankle [employer] [id number] / / [employer] Screw Bone Medline Unite L50mm Od3.5mm Nonsterile [id number] - [id number] Implanted:Qty: 1 on 09/11/2022 by Tyler Contreras MD at [facility] Screw Left: Ankle [employer] [id number] / / [employer] Tightrope Knotless Kit Endoscopic Instrument Titanium Sterile Ar-[id number] - [id number] Implanted:Qty: 1 on 09/11/2022 by Tyler Contreras MD at [facility] Left: Ankle [employer] [id number] 05/26/2026 [id number] / / [id number] [employer] Arthrex Dx Fibertak Needle [place] Suture Sterile Latex Free Ar-[id number] - [id number] Implanted:Qty: 1 on 09/11/2022 by Tyler Contreras MD at [facility] Left: Ankle [employer] [id number] 01/24/2027 [id number] / / [id number] Procedures Procedure Name Priority Date/Time Associated Diagnosis Comments COLONOSCOPY 01/01/2023 7:26 AM CDT from Last 3 Months or Most Recently Relevant to Health Maintenance Results * COLONOSCOPY (01/01/2023 7:26 AM CDT) Anatomical Region Laterality Modality Other Narrative Procedure Note Michel Beltran MD - 01/01/2023 7:26 AM CDT [facility] Patient Name: Natalio Morrison Procedure Date: 01/01/2023 7:26 AM Date of : 1950 Admit Type: Outpatient Age: 72 Gender: Male Attending MD: Michel Beltran M.D. Room: [facility] ROOM 2 Note Status: Finalized Patient [...] scope was passed under direct vision. TheColonoscope [id number] was introduced through the anus and advanced [...] Electronically signed by Michel Beltran M.D. Michel Bletran M.D. 01/01/2023 8:37:25 AM Number of Addenda: 0 Note Initiated On: 01/01/2023 7:26 AM Procedure Code(s): --- Professional --- 45063, Colonoscopy, flexible; with removal of tumor(s), polyp(s), or other lesion(s) by snare technique --- Technical --- 90257, Colonoscopy, flexible; with removal of tumor(s), polyp(s), [...] flexure) K64.9, Unspecified hemorrhoids CPT copyright 2020 [employer]. All rights reserved. The codes documented in this report are preliminary and upon excellence manager reviewmay be revised to meet current compliance requirements. Recognized by the [employer] for promoting quality in endoscopy Michel Beltran MD ENDOSCOPY PROCEDURES Final Re sult from Last 3 Months or Most Recently Relevant to Health Maintenance Insurance MEDICARE [facility] CHOICE PLUS MEDICARE [facility] CHOICE PLUS MEDICARE [facility] OPTIONS PPO Advance Directives For more information, please contact: [phone] * Full Code (Latest Code Status on [...] Agents on File Name Relationship [facility] Morrison Spouse Health Care Agent Care Teams 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
== END 2024-10-29 14:02 | disposition home or self-care (01) ==
PROVIDERS: PCP Internal Medicine; Visit Provider Nurse Practitioner
DX: R01.1 Cardiac murmur, unspecified (principal); I51.89 Other ill-defined heart diseases; I35.0 Nonrheumatic aortic (valve) stenosis; I35.8 Other nonrheumatic aortic valve disorders; I27.20 Pulmonary hypertension, unspecified
CPT/HCPCS: 93306

== ENCOUNTER 2024-12-03 15:23 | Outpatient (CLI) | payer MEDICARE, OTHER, SELFPAY ==
--- OUTSIDE RECORDS SUMMARY | 2024-12-03 15:26 | XMS_ITS | Referral Summary ---
Author Organization [facility] Address [address] [place] [address] Care Team Providers Care Head Bucker Name Role Phone Michel Collins DO Primary Care Provider [phone]- [phone] Abhishek Forde MD Unavailable [phone] Amarjit Kelly MD Unavailable Artem White MD Unavailable [phone] DianeTyler MD Unavailable [phone] Encounters Date Type Department Care Team Description 11/28/2024 5:21 PM CDT - 11/28/2024 7:06 PM CDT Emergency [facility] Emergency Department [address] [place] [id number] Wound check, abscess (Primary Dx) Discharge Disposition: Discharge to home or self care 11/28/2024 4:30 PM CDT Office Visit [facility] at [address] [id number] Ce Mondragon NP Abscess of ankle (Primary Dx) 11/26/2024 10:07 AM CDT - 11/26/2024 11:59 PM CDT Hospital Encounter [facility] Discharge Disposition: Discharge to home or self care 11/26/2024 10:45 AM CDT - 11/26/2024 3:30 PM CDT Emergency [facility] Emergency Department [address] [place] [id number] Chest pain, unspecified type (Primary Dx); Abdominal pain, unspecified abdominal location Discharge Disposition: Discharge to home or self care from Last 3 Months Allergies No known active allergies Medications lisinopril [...] by mouth as needed Active HYDROcodone-acetam inophen ([place]) 5-325 mg per tabletIndications: Pain Take 1 [...] for cough 30 capsule 07/22/19 25 Active famotidine (PEPCID) 20 mg tablet Take 1 tablet (20 mg total) by mouth 2 (two) times a day 60 tablet 11/27/19 25 025 Active doxycycline (VIBRAMYCIN) 100 mg capsule Take 1 tablet/capsule (100 mg total) by mouth 2 (two) times a day for 5 days 10 tablet/capsu le 11/29/19 25 025 Active Active Problems Problem Noted Date Diagnosed Date Abnormal CT scan, colon 12/25/2022 Assessment & Plan (12/25/2022 1:17 PM CDT): colonoscopy Trimalleolar fracture of ank le, closed, left, initial encounter 09/05/2022 Overview (09/05/2022): Added automatically from request for surgery [id number] History of colonic polyps 09/13/2020 Overview (09/13/2020): Added automatically from request for surgery [id number] Enlarged prostate 08/05/2020 Overview (08/05/2020): Added automatically from request for surgery [id number] Abdominal pain 07/19/2020 Urinary retention due to benign prostatic hyperp lasia 07/19/2020 Constipation due to outlet dysfunction Assessment & Plan (09/13/2020 1:19 PM CDT): Plan to proceed with colonoscopy Leukocytosis 07/19/2020 Sepsis 07/19/2020 Urinary tract infection in male 11/25/2019 Central cord syndrome 08/13/2019 Overview (08/14/2019): Added automatically from request for surgery [id number] Palpitations 08/31/2017 Assessment & Plan (08/31/2017 4:12 [...] making you feel afraid or unsafe? 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 Gender Identity Not on file Sexual Orientation Not on file Last Filed Vital Signs Vital Sign Reading Time Taken Comments Blood Pressure 167/73 11/28/2024 5:19 PM CDT Pulse 74 11/28/2024 5:19 PM CDT Temperature 36.7 C (98 F) 11/28/2024 5:19 PM CDT Respiratory Rate 18 11/28/2024 5:19 PM CDT Oxygen Saturation 95% 11/28/2024 5:19 PM CDT Inhaled Oxygen Concentration - - Weight 88 kg (194 lb) 11/28/2024 5:19 PM CDT Height 167.6 cm (5' 6) 11/28/2024 5:19 PM CDT Body Mass Index 31.31 11/28/2024 5:19 PM CDT Plan of Treatment Not on file Medical Devices Implanted Type Area Edge Bander Operator Device Identifier Shelf Expiration Date Model / Serial / Lot YouGift Plate Bone Medline Unite Straight Fibula Tibial 10 Hole [id number] - [id number] Implanted:Qty: 1 on 09/11/2022 by Tyler Contreras MD at [facility] Plate Left: Ankle [employer] [id number] / / [employer] Screw Bone Medline Unite L12mm Od2.7mm Foot Ankle Nonlock [id number] - [id number] Implanted:Qty: 1 on 09/11/2022 by Tyler Contreras MD at [facility] Screw Left: Ankle [employer] [id number] / / [employer] Screw Bone Medline Unite L16mm Od4mm Ankle Cancellous [id number] - [id number] Implanted:Qty: 1 on 09/11/2022 by Tyler Contreras MD at [facility] Screw Left: Ankle [employer] [id number] / / [employer] Screw 14mm 3.5mm Bone Medline Unite Foot Ankle Lock [id number] - [id number] Implanted:Qty: 1 on 09/11/2022 by Tyler Contreras MD at [facility] Screw Left: Ankle [employer] [id number] / / [employer] Screw Bone Medline Unite L12mm Od3.5mm Foot Ankle Nonlock [id number] - [id number] Implanted:Qty: 3 on 09/11/2022 by Tyler Contreras MD at [facility] Screw Left: Ankle [employer] [id number] / / [employer] Screw Bone Medline Unite L50mm Od3.5mm Nonsterile [id number] - [id number] Implanted:Qty: 1 on 09/11/2022 by Tyler Contreras MD at [facility] Screw Left: Ankle [employer] [id number] / / [employer] Tightrope Knotless Kit Endoscopic Instrument Titanium Sterile Ar-[id number] - [id number] Implanted:Qty: 1 on 09/11/2022 by Tyler Contreras MD at [facility] Left: Ankle [employer] [id number] 05/26/2026 [id number] / / [id number] Ar[employer] Inc Arthrex Dx Fibertak Needle Eastern Suture Sterile Latex Free Ar-[id number] - [id number] Implanted:Qty: 1 on 09/11/2022 by Tyler Contreras MD at [facility] Left: Ankle [employer] Inc [id number] 01/24/2027 [id number] / / [id number] Procedures Procedure Name Priority Date/Time Associated Diagnosis Comments XR ANKLE LEFT 3 OR MORE VIEWS ED 11/28/2024 6:07 PM CDT EGFR STAT 11/28/2024 5:45 PM CDT DIFFERENTIAL AUTO STAT 11/28/2024 5:4 5 PM CDT SEPSIS LACTATE WITH REFLEX Routine 11/28/2024 5:45 PM CDT COMPREHENSIVE METABOLIC PANEL STAT 11/28/2024 5:45 PM CDT CBC WITH AUTO DIFFERENTIAL STAT 11/28/2024 5:45 PM CDT TROPONIN T HIGH-SENSITIVITY 2-HOUR Timed 11/26/2024 12:55 PM CDT XR CHEST 1 VIEW ED 11/26/2024 11:01 AM CDT D-DIMER, QUANTITATIVE Add-On 11/26/2024 10:48 AM CDT EGFR STAT 11/26/2024 10:48 AM CDT DIFFERENTIAL AUTO STAT 11/26/2024 10: 48 AM CDT LIPASE STAT 11/26/2024 10:48 AM CDT THYROID FUNCTION CASCADE STAT 11/26/2024 10:48 AM CDT MAGNESIUM STAT 11/26/2024 10:48 AM CDT TROPONIN T HIGH-SENSITIVITY SERIES (BASELINE, 2HR, 4HR, 6HR) STAT 11/26/2024 10:48 AM CDT COMPREHENSIVE METABOLIC PANEL STAT 11/26/2024 10:48 AM CDT CBC WITH AUTO DIFFERENTIAL STAT 11/26/2024 10:48 AM CDT ECG 12-LEAD STAT 11/26/2024 10:41 AM CDT COLONOSCOPY 01/01/2023 7:26 AM CDT from Last 3 Months or Most Recently Relevant to Health Maintenance Results * XR Ankle Left 3 or More Views (11/28/2024 6:07 PM CDT) Anatomical Region Laterality Modality Lower Extremities, Ankle Left Compute d Radiography 11/28/2024 6:24 PM CDT Narrative 11/28/2024 6:26 PM CDT EXAM DESCRIPTION: XR ANKLE LEFT 3 OR MORE VIEWS REASON FOR STUDY: pain C/o possible wound infection to left ankle. Pt stated that he has hardware in his ankle that rubs and causes wounds. He noticed it was becoming red about a week ago. TECHNIQUE: 3 radiographic view(s) of the left ankle . COMPARISON: 05/13/2023 FINDINGS: Plate and multiple screws are seen in the distal fibula. Along screw is seen transfixing the distal fibula and distal tibia. The hardware appears to be intact. This is similar to previous. Evidence of prior hardware revision is noted. Mild underlying degenerative changes are seen of the ankle. No fracture or dislocation is identified. Prominent soft tissue swelling is seen about the ankle. IMPRESSION: Prominent soft tissue swelling is seen about the ankle. No acute osseous abnormality is identified. Surgical and chronic changes are noted. THIS IS AN ELECTRONICALLY VERIFIED FINAL REPORT 11/28/2024 6:26 PM - Electronically signed by Darío Lyles M.D. KH: ESAU Report ID: [id number] Reading Location: [id number] Procedure Note Darío Lyles MD - 11/28/2024 EXAM DESCRIPTION: XR ANKLE LEFT 3 OR MORE VIEWS REASON FOR STUDY: pain C/o possible wound infection to left ankle. Pt stated that he hashardware in his ankle that rubs and causes wounds. He noticed it was becoming red about a week ago. TECHNIQUE: 3 radiographic view(s) of the left ankle . COMPARISON: 05/13/2023 FINDINGS: Plate and multiple screws are seen in the distal fibula. Along screw isseen transfixing the distal fibula and distal tibia. The hardware appears sheridan intact. This is similar to previous. Evidence of prior hardware revisionis noted. Mild underlying degenerative changes are seen of the ankle. No fracture or dislocation is identified. Prominent soft tissue swelling isseen about the ankle. IMPRESSION: Prominent soft tissue swelling is seen about the ankle. No acute osseous abnormality is identified. Surgical and chronic changes are noted. THIS IS AN ELECTRONICALLY VERIFIED FINAL REPORT 11/28/2024 6:26 PM - Electronically signed by Darío Lyles M.D. KH: ESAU Report ID: [id number] Reading Location: [place] [address] Lisa TORRES IMG XR PROCEDURES Final Result * Sepsis Lactate w/ Reflex (11/28/2024 5:45 PM CDT) Sepsis Lactate 1.7 0.7 - 2.0 mmol/L Blood 11/28/2024 5:45 PM CDT 11/28/2024 5:51 PM CDT Lisa TORRES LAB BLOOD ORDERABLES Final Resu lt [facility] [place] [facility] Department [place] [address] * eGFR (11/28/2024 5:45 PM CDT) eGFR 90 >=60 mL/min/1. 73 m2 Comment: Interpretive Data Reference Interval Normal >/= 90 mL/min/1.73m2 Mildly decreased* 60 - 89 mL/min/1.73m2 Mildly to moderately decreased 45 - 59 mL/min/1.73m2 Moderately to severely decreased 30 - 44 mL/min/1.73m2 Severely decreased 15 - 29 mL/min/1.73m2 Kidney Failure < 15 mL/min/1.73m2 *Relative to young adult level Estimated glomerular filtration rate is determined by the 2020 CKD-EPI equation recommended by the National Kidney Foundation (A Unifying Approach to GFR Estimation: Recommendations of the NKF-ASK Task Force on Reassessing the Inclusion of Race in Diagnosing Kidney Disease, JASN 2020). The CKD-EPI equation should not be used for patients with unstable renal function and has not been validated in children and those over 70. Current interpretive data was last reviewed 2021. Blood 11/28/2024 5:45 PM CDT 11/28/2024 5:51 PM CDT us Lisa TORRES LAB BLOOD ORDERABLES Final Resu lt [facility] ([place]) 1 [facility] Department [place] [address] * Differential, auto (11/28/2024 5:45 PM CDT) Neutrophil abs 5.76 1.50 - 6.50 K/cumm Imm gran abs 0.03 0.00 - 0.10 K/cumm [facility] ([place]) Lymphocyte abs 1.85 0.80 - 3.30 K/cumm [facility] ([place]) Monocyte abs 0.55 0.20 - 0.80 K/cumm [facility] ([place]) Eosinophil abs 0.15 0.00 - 0.50 K/cumm [facility] ([place]) Basophil abs 0.04 0.00 - 0.10 K/cumm [facility] ([place]) Neutrophil pct 68.6 % [facility] ([place]) Comment: Interpretive Data Percent cell count reference ranges are not reported, since discordance with absolute values may lead to misinterpretation of CBC data. Current Interpretive Data was last revised on 2017. Imm gran pct 0.4 % [facility] ([place]) Comment: Interpretive Data Percent cell count reference ranges are not reported, since discordance with absolute values may lead to misinterpretation of CBC data. Current Interpretive Data was last revised on 2017. Lymphocyte pct 22.1 % [facility] ([place]) Comment: Interpretive Data Percent cell count reference ranges are not reported, since discordance with absolute values may lead to misinterpretation of CBC data. Current Interpretive Data was last revised on 2017. Monocyte pct 6.6 % [facility] ([place]) Comment: Interpretive Data Percent cell count reference ranges are not reported, since discordance with absolute values may lead to misinterpretation of CBC data. Current Interpretive Data was last revised on 2017. Eosinophil pct 1.8 % [facility] ([place]) Comment: Interpretive Data Percent cell count reference ranges are not reported, since discordance with absolute values may lead to misinterpretation of CBC data. Current Interpretive Data was last revised on 2017. Basophil pct 0.5 % [facility] ([place]) Comment: Interpretive Data Percent cell count reference ranges are not reported, since discordance with absolute values may lead to misinterpretation of CBC data. Current Interpretive Data was last revised on 2017. Blood 11/28/2024 5:45 PM CDT 11/28/2024 5:51 PM CDT us Lisa TORRES LAB BLOOD ORDERABLES Final Resu lt [facility] ([place]) 1 [facility] Department [place] [address] * (ABNORMAL) CBC with auto differential (11/28/2024 5:45 PM CDT) WBC 8.38 3.80 - 9.90 K/cumm Hgb 14.0 13.0 - 17.5 g/dL [facility] ([place]) Hct 44.5 38.9 - 50.3 % [facility] ([place]) Plt 214 150 - 400 K/cumm [facility] ([place]) MPV 9.3 9.1 - 12.3 fL [facility] ([place]) RBC 4.85 4.30 - 5.80 M/cumm [facility] ([place]) MCV 91.8 81.3 - 96.4 fL [facility] ([place]) MCH 28.9 27.1 - 33.3 pg [facility] ([place]) MCHC 31.5(L) 32.3 - 35.7 g/dL [facility] ([place]) RDW CV 11.8 11.1 - 14.9 % [facility] ([place]) RDW SD 39.7 35.7 - 48.1 fL [facility] ([place]) NRBC abs 0.00 0.00 - 0.01 K/cumm [facility] ([place]) Blood 11/28/2024 5:45 PM CDT 11/28/2024 5:51 PM CDT us Lisa TORRES LAB BLOOD ORDERABLES Final Resu lt [facility] ([place]) 1 [facility] Department [place] [address] * Comprehensive metabolic panel (11/28/2024 5:45 PM CDT) Sodium 138 135 - 145 mmol/L Potassium, pl 3.5 3.3 - 4.9 mmol/L [facility] ([place]) Chloride 100 97 - 110 mmol/L [facility]) CO2 26 22 - 32 mmol/L [facility]) Anion gap 12 2 - 15 mmol/L [facility]) BUN 10 6 - 25 mg/dL [facility] ([place]) Creatinine 0.86 0.80 - 1.30 mg/dL [facility]) Glucose 150 70 - 199 mg/dL [facility] ([place]) Comment: Interpretive Data Fasting glucose >/= 126 mg/dl is diagnostic for diabetes. Fasting is defined as no caloric intake for at least 8 hours. Fasting glucose between 100 mg/dl to 125 mg/dl is diagnostic of prediabetes. In a patient with classic symptoms of hyperglycemia or hyperglycemic crisis, a random glucose >/= 200 mg/dl is diagnostic for diabetes. In the absence of unequivocal hyperglycemia, results should be confirmed by repeat testing. The classification and Diagnosis of Diabetes Diabetes Care 2021; 46: S19-S40. Current interpretive data was last revised 2022. Calcium 9.0 8.5 - 10.3 mg/dL [facility] ([place]) Bilirubin, total 0.6 0.1 - 1.2 mg/dL [facility] ([place]) Protein, pl 7.0 6.5 - 8.5 g/dL [facility] ([place]) Albumin 3.9 3.5 - 5.0 g/dL [facility] ([place]) Alk phos 113 40 - 130 Units/L [facility] ([place]) ALT 12 7 - 55 Units/L [facility] ([place]) AST 18 10 - 50 Units/L [facility] ([place]) Blood 11/28/2024 5:45 PM CDT 11/28/2024 5:51 PM CDT us Lisa TORRES LAB BLOOD ORDERABLES Final Resu lt Performing Organization Address City/[facility]/ZIP Co de Phone Number [facility] ([place]) [address] [place] [address] [email or web address] [address] * Troponin T high-sensitivity 2-hour (11/26/2024 12:55 PM CDT) Trop T hs 12 <=22 ng/L Comment: Interpretive Data For further hscTnT resources including the diagnostic algorithm and an aid in interpretation, copy and paste this link: https://nrl.testcatalog.org/show/hsTrop Current Interpretive Data last revised 2020. Trop T hs delta -1 ng/L [facility] ([place]) Trop T hs interp Insignificant [facility] ([place]) Blood 11/26/2024 12:5 5 PM CDT 11/26/2024 12:59 PM CDT us Jorge Mills MD LAB BLOOD ORDERABLE S Final Result [facility] ([place]) 1 [facility] [place] [address] * XR Chest 1 Vw Portable (If patient hemodynamically UNstable or UNable to ambulate) (11/26/2024 11:01 AM CDT) Anatomical Region Laterality Modality Body, Chest N/A Computed Radiogr aphy 11/26/2024 11:0 8 AM CDT Narrative 11/26/2024 11:09 AM CDT EXAM DESCRIPTION: XR CHEST 1 VIEW REASON FOR STUDY: chest pain Pt to ED via [facility]. Per Pt last night he had epigstric burning that went away with pepto bismo. Pt reports that he had chest pressure this morning w/ palpitations. TECHNIQUE: Single frontal radiographic view(s) of the chest. COMPARISON: 12/28/2023 FINDINGS: Heart size is upper limits of normal. The pulmonary vasculature and mediastinum are grossly stable. There is no definite evidence of a pneumothorax. There is no definite evidence of a focal consolidation or pleural effusion. There is mild bibasilar subsegmental atelectasis and scarring. The osseous structures are acutely grossly stable. IMPRESSION: 1. Mild bibasilar subsegmental atelectasis and scarring without definite evidence of focal consolidation. THIS IS AN ELECTRONICALLY VERIFIED FINAL REPORT 11/26/2024 11:09 AM - Electronically signed by Eh Corley D.O. PS: PS Report ID: [id number] Reading Location: [id number] Procedure Note Eh Corley, DO - 11/26/2024 EXAM DESCRIPTION: XR CHEST 1 VIEW REASON FOR STUDY: chest pain Pt to ED via [facility]. Per Pt last night he had epigstric burning that went away with pepto bismo. Pt reports that he had chest pressure this morningw/ palpitations. TECHNIQUE: Single frontal radiographic view(s) of the chest. COMPARISON: 12/28/2023 FINDINGS: Heart size is upper limits of normal. The pulmonary vasculature and mediastinum are grossly stable. There is no definite evidence of a pneumothorax. There is no definite evidence of a focal consolidation or pleural effusion. There is mild bibasilar subsegmental atelectasis and scarring. The osseous structures are acutely grossly stable. IMPRESSION: 1. Mild bibasilar subsegmental atelectasis and scarring without definite evidence of focal consolidation. THIS IS AN ELECTRONICALLY VERIFIED FINAL REPORT 11/26/2024 11:09 AM - Electronically signed by Eh Corley D.O. PS: PS Report ID: [id number] Reading Location: [place] [address] us Jorge Mills MD IMG XR PROCEDURES F inal Result * Troponin T high-sensitivity series (baseline, 2hr, 4hr, 6hr) (11/26/2024 10:48 AM CDT) Trop T hs 13 <=22 ng/L Comment: Interpretive Data For further hscTnT resources including the diagnostic algorithm and an aid in interpretation, copy and paste this link: https://nrl.testcatalog.org/show/hsTrop Current Interpretive Data last revised 2020. Blood 11/26/2024 10:4 8 AM CDT 11/26/2024 10:51 AM CDT us Jorge Mills MD LAB BLOOD ORDERABLE S Final Result [facility] [place]) 8 [facility] Department [place] [address] * eGFR (11/26/2024 10:48 AM CDT) eGFR >90 >=60 mL/min/1. 73 m2 Comment: Interpretive Data Reference Interval Normal >/= 90 mL/min/1.73m2 Mildly decreased* 60 - 89 mL/min/1.73m2 Mildly to moderately decreased 45 - 59 mL/min/1.73m2 Moderately to severely decreased 30 - 44 mL/min/1.73m2 Severely decreased 15 - 29 mL/min/1.73m2 Kidney Failure < 15 mL/min/1.73m2 *Relative to young adult level Estimated glomerular filtration rate is determined by the 2020 CKD-EPI equation recommended by the National Kidney Foundation (A Unifying Approach to GFR Estimation: Recommendations of the NKF-ASK Task Force on Reassessing the Inclusion of Race in Diagnosing Kidney Disease, JASN 2020). The CKD-EPI equation should not be used for patients with unstable renal function and has not been validated in children and those over 70. Current interpretive data was last reviewed 2021. Blood 11/26/2024 10:4 8 AM CDT 11/26/2024 10:51 AM CDT us Jorge Mills MD LAB BLOOD ORDERABLE S Final Result [facility] ([place]) 1 [facility] Department [place] [address] * Differential, auto (11/26/2024 10:48 AM CDT) Neutrophil abs 5.25 1.50 - 6.50 K/cumm Imm gran abs 0.02 0.00 - 0.10 K/cumm [facility] ([place]) Lymphocyte abs 1.74 0.80 - 3.30 K/cumm [facility] ([place]) Monocyte abs 0.68 0.20 - 0.80 K/cumm [facility] ([place]) Eosinophil abs 0.13 0.00 - 0.50 K/cumm [facility] ([place]) Basophil abs 0.06 0.00 - 0.10 K/cumm [facility] ([place]) Neutrophil pct 66.6 % [facility] ([place]) Comment: Interpretive Data Percent cell count reference ranges are not reported, since discordance with absolute values may lead to misinterpretation of CBC data. Current Interpretive Data was last revised on 2017. Imm gran pct 0.3 % [facility] ([place]) Comment: Interpretive Data Percent cell count reference ranges are not reported, since discordance with absolute values may lead to misinterpretation of CBC data. Current Interpretive Data was last revised on 2017. Lymphocyte pct 22.1 % [facility] ([place]) Comment: Interpretive Data Percent cell count reference ranges are not reported, since discordance with absolute values may lead to misinterpretation of CBC data. Current Interpretive Data was last revised on 2017. Monocyte pct 8.6 % [facility] ([place]) Comment: Interpretive Data Percent cell count reference ranges are not reported, since discordance with absolute values may lead to misinterpretation of CBC data. Current Interpretive Data was last revised on 2017. Eosinophil pct 1.6 % [facility] ([place]) Comment: Interpretive Data Percent cell count reference ranges are not reported, since discordance with absolute values may lead to misinterpretation of CBC data. Current Interpretive Data was last revised on 2017. Basophil pct 0.8 % [facility] ([place]) Comment: Interpretive Data Percent cell count reference ranges are not reported, since discordance with absolute values may lead to misinterpretation of CBC data. Current Interpretive Data was last revised on 2017. Blood 11/26/2024 10:4 8 AM CDT 11/26/2024 10:51 AM CDT us Jorge Mills MD LAB BLOOD ORDERABLE S Final Result Performing Organization Address City/[facility]/ZIP Co de Phone Number [facility] ([place]) 1 [facility] [place] [address] * Thyroid Function [place] (11/26/2024 10:48 AM CDT) TSH 1.34 0.30 - 4.20 mcIUnit/mL Blood 11/26/2024 10:4 8 AM CDT 11/26/2024 11:08 AM CDT us Jorge Mills MD LAB BLOOD ORDERABLE S Final Result Performing Organization Address City/[facility]/ZIP Co de Phone Number [facility] ([place]) 1 [facility] [place] [address] * (ABNORMAL) CBC with auto differential (11/26/2024 10:48 AM CDT) WBC 7.88 3.80 - 9.90 K/cumm Hgb 14.8 13.0 - 17.5 g/dL [facility] ([place]) Hct 45.9 38.9 - 50.3 % [facility] ([place]) Plt 216 150 - 400 K/cumm [facility] ([place]) MPV 9.4 9.1 - 12.3 fL [facility] ([place]) RBC 5.08 4.30 - 5.80 M/cumm [facility] ([place]) MCV 90.4 81.3 - 96.4 fL [facility] ([place]) MCH 29.1 27.1 - 33.3 pg [facility] ([place]) MCHC 32.2(L) 32.3 - 35.7 g/dL [facility] ([place]) RDW CV 11.9 11.1 - 14.9 % [facility] ([place]) RDW SD 39.4 35.7 - 48.1 fL [facility] ([place]) NRBC abs 0.00 0.00 - 0.01 K/cumm [facility] ([place]) Blood Venous blood specimen / Unknown 11/26/2024 10:48 AM CDT 11/26/2024 10:51 AM CDT us Jorge Mills MD LAB BLOOD ORDERABLE S Final Result [facility] ([place]) 1 [facility] Department [place] [address] * D-dimer, quantitative (11/26/2024 10:48 AM CDT) D-Dimer 416 <=499 ng/mL FEU [facility] ([place]) Comment: Interpretive data FDA approved the D-dimer, in conjunction with a low or moderate pretest probability score, to exclude venous thromboembolic events (VTE) (PE and DVT) in outpatients when the D-dimer result is < 500 ng/ml FEU. Evidence supports using an age-adjusted D-dimer cut-off for outpatients older than 50 (age x 10) to improve specificity without sacrificing sensitivity. Example: age 67, VTE cut-off 680 ng/ml FEU. References; Schoutzachary HT et al. Brit Med J. 2013;346:f2492. uJsten et al. Annals Int Med. 2015;163:701-11. Current interpretive data was last revised on 2019. Blood 11/26/2024 10:4 8 AM CDT 11/26/2024 11:39 AM CDT us Lisa TORRES LAB BLOOD ORDERABLES Final Resu lt Performing Organization Address [facility] Co de Phone Number CHILO PERAZA ([place]) 1 [facility] [place] [address] * Magnesium (11/26/2024 10:48 AM CDT) Pathologist [facility] Magnesium 1.9 1.4 - 2.5 mg/dL Blood 11/26/2024 10:4 8 AM CDT 11/26/2024 11:08 AM CDT Jorge Mills MD LAB BLOOD ORDERABLE S Final Result Performing Organization Address [facility] de Phone Number CHILO PERAZA ([place]) 1 [facility] [place] [address] * Lipase (11/26/2024 10:48 AM CDT) Pathologist [facility] Lipase 21 10 - 99 Units/L Blood 11/26/2024 10:4 8 AM CDT 11/26/2024 11:08 AM CDT Jorge Mills MD LAB BLOOD ORDERABLE S Final Result Performing Organization Address [facility] de Phone Number CHILO PERAZA ([place]) 1 [facility] [place] [address] * (ABNORMAL) Comprehensive metabolic panel (11/26/2024 10:48 AM CDT) Sodium 138 135 - 145 mmol/L Potassium, pl 3.8 3.3 - 4.9 mmol/L [facility] ([place]) Chloride 103 97 - 110 mmol/L [facility] ([place]) CO2 24 22 - 32 mmol/L [facility] ([place]) Anion gap 11 2 - 15 mmol/L [facility] ([place]) BUN 14 6 - 25 mg/dL [facility] ([place]) Creatinine 0.78(L) 0.80 - 1.30 mg/dL [facility] ([place]) Glucose 118 70 - 199 mg/dL [facility] ([place]) Comment: Interpretive Data Fasting glucose >/= 126 mg/dl is diagnostic for diabetes. Fasting is defined as no caloric intake for at least 8 hours. Fasting glucose between 100 mg/dl to 125 mg/dl is diagnostic of prediabetes. In a patient with classic symptoms of hyperglycemia or hyperglycemic crisis, a random glucose >/= 200 mg/dl is diagnostic for diabetes. In the absence of unequivocal hyperglycemia, results should be confirmed by repeat testing. The classification and Diagnosis of Diabetes Diabetes Care 2021; 46: S19-S40. Current interpretive data was last revised 2022. Calcium 8.8 8.5 - 10.3 mg/dL [facility] ([place]) Bilirubin, total 0.8 0.1 - 1.2 mg/dL [facility] ([place]) Protein, pl 7.0 6.5 - 8.5 g/dL [facility] ([place]) Albumin 4.0 3.5 - 5.0 g/dL [facility] ([place]) Alk phos 113 40 - 130 Units/L [facility] ([place]) ALT 14 7 - 55 Units/L [facility] ([place]) AST 21 10 - 50 Units/L [facility] ([place]) Blood 11/26/2024 10:4 8 AM CDT 11/26/2024 10:51 AM CDT us Jorge Mills MD LAB BLOOD ORDERABLE S Final Result [facility] ([place]) 1 [facility] [place] [address] * ECG 12 lead (11/26/2024 10:41 AM CDT) 11/26/2024 10:4 1 AM CDT Narrative [facility] - 11/26/2024 2:27 PM CDT Vent Rate: 85 bpm RR Interval: 702 msec MI Interval: 150 msec QRS Duration: 138 msec QT Interval: 397 msec QTC Interval: 439 msec P-R-T Pender: 72 - -76 - 31 degrees IMPRESSION: SINUS RHYTHM RIGHT BUNDLE BRANCH BLOCK [120+ ms QRS DURATION, UPRIGHT V1, 40+ ms S IN I/aVL/V4/V5/V6] LEFT ANTERIOR FASCICULAR BLOCK [QRS AXIS <= -45, QR IN I, RS IN II] ABNORMAL ECG NO CHANGE FROM PREVIOUS TRACING NOTED Electronically Signed By: Alexx Bourgeois MD us Jorge Mills MD ECG ORDERABLES Fin al Result [facility] * COLONOSCOPY (01/01/2023 7:26 AM CDT) Anatomical Region Laterality Modality Other Narrative Procedure Note Michel Beltran MD - 01/01/2023 7:26 AM CDT [facility] Patient Name: Marko Morrison Procedure Date: 01/01/2023 7:26 AM Date of : 1950 Admit Type: Outpatient Age: 72 Gender: Male Attending MD: Michel Beltran M.D. Room: [facility] ENDOSCOPY ROOM 2 Note Status: Finalized Patient [...] scope was passed under direct vision. TheColonoscope [id number] was introduced through the anus and advanced [...] 7:26 AM Procedure Code(s): --- Professional --- 86014, Colonoscopy, flexible; with removal of tumor(s), polyp(s), or other lesion(s) by snare technique --- Technical --- 62432, Colonoscopy, flexible; with removal of tumor(s), polyp(s), [...] flexure) K64.9, Unspecified hemorrhoids CPT copyright 2020 [employer]. All rights reserved. The codes documented in this report are preliminary and upon medical sales consultant reviewmay be revised to meet current compliance requirements. Recognized by the [employer] for promoting quality in endoscopy Michel Beltran MD ENDOSCOPY PROCEDURES Final Re sult from Last 3 Months or Most Recently Relevant to Health Maintenance Insurance MEDICARE [facility] CHOICE PLUS MEDICARE [facility] CHOICE PLUS MEDICARE [facility] OPTIONS PPO Advance Directives For more information, please contact: [phone] * Full Code (Latest Code Status on [...] Name Relationship Healthcare Agent Relationshi p Communication Dorothea Morrison Spouse Health Care Agent Care Teams Head Bucker Relationship Specialty Start Date End Date Michel Collins DO PCP - General 08/25/16 Abhishek Forde MD [address] [place] [address] Consulting Physician Cardiology 08/31/17 Amarjit Kelly MD [address] [place] [address] Consulting Physician Psychiatry 08/31/17 Artem White MD [address] [place] [address] Consulting Physician Urology 07/19/20 Tyler Contreras MD [address] [place] [address] Consulting Physician Orthopedic Surgery 09/11/22
--- OUTSIDE RECORDS SUMMARY | 2024-12-03 15:27 | XMS_ITS | Clinical Summary ---
Author Organization [facility] Address [address] [place] [address] Care Team Providers Care Liner Checker Name Role Phone Michel Collins DO Primary Care Provider [phone]- [phone] Abhishek Forde MD Unavailable [phone] Amarjit Kelly MD Unavailable Artem White MD Unavailable DianeTyler MD Unavailable [phone] Allergies No known active allergies Medications lisinopril [...] by mouth as needed Active HYDROcodone-acetam inophen ([place]) 5-325 mg per tabletIndications: Pain Take 1 [...] (09/05/2022): Added automatically from request for surgery [id number] History of colonic polyps 09/13/2020 Overview (09/13/2020): Added automatically from request for surgery [id number] Enlarged prostate 08/05/2020 Overview (08/05/2020): Added automatically from request for surgery [id number] Abdominal pain 07/19/2020 Urinary retention due to benign prostatic hyperp lasia 07/19/2020 Constipation due to outlet dysfunction Assessment & Plan (09/13/2020 1:19 PM CDT): Plan to proceed with colonoscopy Leukocytosis 07/19/2020 Sepsis 07/19/2020 Urinary tract infection in male 11/25/2019 Central cord syndrome 08/13/2019 Overview (08/14/2019): Added automatically from request for surgery [id number] Palpitations 08/31/2017 Assessment & Plan (08/31/2017 4:12 [...] This has disappeared from the recent CT Encounters Date Type Department Care Team Description 11/28/2024 5:21 PM CDT - 11/28/2024 7:06 PM CDT Emergency [facility] [address] [place] [address] Wound check, abscess (Primary Dx) Discharge Disposition: Discharge to home or self care 11/28/2024 4:30 PM CDT Office Visit [facility] Medical Group [facility] Care at [address] [phone] Ce Mondragon NP Abscess of ankle (Primary Dx) 11/26/2024 10:45 AM CDT - 11/26/2024 3:30 PM CDT Emergency [facility] [address] [place] [address] Chest pain, unspecified type (Primary Dx); Abdominal pain, unspecified abdominal location Discharge Disposition: Discharge to home or self care 11/26/2024 10:07 AM CDT - 11/26/2024 11:59 PM CDT Hospital Encounter [facility] Discharge Disposition: Discharge to home or self care from Last 3 Months Immunizations Immunization Administration Dates Next Due Influenza, [...] file Legal Sex Male 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 Gender Identity Not on file Sexual Orientation [...] 11/28/2024 5:19 PM CDT Plan of Treatment Health Maintenance Due Date Last Done Comments Depression Screening 1950 Hepatitis C Screening 1950 DTaP/Tdap/Td Vaccine (1 - Tdap) 1960 Hepatitis B Screening 10/23/1967 Pneumococcal vaccine 65+ (1 of 1 - PCV) 10/23/1999 Zoster Vaccine (1 of 2) 10/23/1999 Well Visit 65+ 2014 Fall Risk Assessment 01/02/2024 01/01/2023 Influenza Vaccine (#1) 2025 9, 02/24/2019, 02/17/2017, Additional history exists Colon Cancer Screening-Colonoscopy 01/01/2033 01/01/2023, 10/10/2020 Colon Cancer Screening-CT Colonography Discontinued 01/01/2023, 10/10/2020 Colon Cancer Screening-DNA Stool Discontinued 01/02/20 23, 10/10/2020 Colon Cancer Screening-FIT Discontinued 01/01/2023, Colon Cancer Screening-Sigmoidoscopy Discontinued 01/01/2023, 10/10/2020 Medical Devices Implanted Type Area Housekeeping Director Device Identifier Shelf Expiration Date Model / Serial / Lot [employer] Plate Bone Medline Unite Straight Fibula Tibial 10 Hole [id number] - [id number] Implanted:Qty: 1 on 09/11/2022 by Tyler Contreras MD at [facility] Plate Left: Ankle Medline [employer] [id number] / / [employer] Screw Bone Medline Unite L12mm Od2.7mm Foot Ankle Nonlock [id number] - [id number] Implanted:Qty: 1 on 09/11/2022 by Tyler Contreras MD at [facility] Screw Left: Ankle [employer] [id number] / / Medline [employer] Screw Bone Medline Unite L16mm Od4mm Ankle Cancellous [id number] - [id number] Implanted:Qty: 1 on 09/11/2022 by Tyler Contreras MD at [facility] Screw Left: Ankle [employer] [id number] / / [employer] Screw 14mm 3.5mm Bone Medline Unite Foot Ankle Lock [id number] - [id number] Implanted:Qty: 1 on 09/11/2022 by Tyler Contreras MD at [facility] Screw Left: Ankle [employer] [id number] / / [employer] Screw Bone Medline Unite L12mm Od3.5mm Foot Ankle Nonlock [id number] - [id number] Implanted:Qty: 3 on 09/11/2022 by Tyler Contreras MD at [facility] Screw Left: Ankle [employer] [id number] / / [employer] Screw Bone Medline Unite L50mm Od3.5mm Nonsterile [id number] - [id number] Implanted:Qty: 1 on 09/11/2022 by Tyler Contreras MD at [facility] Screw Left: Ankle [employer] [id number] / / [employer] Tightrope Knotless Kit Endoscopic Instrument Titanium Sterile Ar-8926t - [id number] Implanted:Qty: 1 on 09/11/2022 by Tyler Contreras MD at [facility] Left: Ankle [employer] [id number] 05/26/2026 [id number] / / [id number] Ar[employer]rex Inc Arthrex Dx Fibertak Needle Ossian Suture Sterile Latex Free Ar-8990st - [id number] Implanted:Qty: 1 on 09/11/2022 by Tyler Contreras MD at [facility] Left: Ankle [employer] [id number] 01/24/2027 [id number] / / [id number] Procedures Procedure Name Priority Date/Time Associated Diagnosis [...] Darío Lyles M.D. KH: ESAU Report ID: [id number] Reading Location: [place] [address] Procedure Note Darío Lyles MD - 11/28/2024 [...] Darío Lyles M.D. KH: ESAU Report ID: [id number] Reading Location: [place] [address] Lisa TORRES IMG XR PROCEDURES Final Result * Sepsis Lactate w/ Reflex (11/28/2024 5:45 PM CDT) Sepsis Lactate 1.7 0.7 - 2.0 mmol/L Blood 11/28/2024 5:45 PM CDT 11/28/2024 5:51 PM CDT Lisa TORRES LAB BLOOD ORDERABLES Final Resu lt [facility] [place] 1 [facility] Department [place] [address] * eGFR (11/28/2024 5:45 PM [...] TORRES LAB BLOOD ORDERABLES Final Resu lt [facility] ([place]) 1 [facility] Department [place] [address] * Differential, auto (11/28/2024 5:45 PM CDT) Neutrophil abs 5.76 1.50 - 6.50 K/cumm Imm gran abs 0.03 0.00 - 0.10 K/cumm [facility] ([place]) Lymphocyte abs 1.85 0.80 - 3.30 K/cumm [facility] ([place]) Monocyte abs 0.55 0.20 - 0.80 K/cumm [facility] ([place]) Eosinophil abs 0.15 0.00 - 0.50 K/cumm [facility] ([place]) Basophil abs 0.04 0.00 - 0.10 K/cumm [facility] ([place]) Neutrophil pct 68.6 % [facility] ([place]) Comment: Interpretive Data Percent cell count reference ranges are not reported, since discordance with absolute values may lead to misinterpretation of CBC data. Current Interpretive Data was last revised on 2017. Imm gran pct 0.4 % [facility] ([place]) Comment: Interpretive Data Percent cell count reference [...] TORRES LAB BLOOD ORDERABLES Final Resu lt [facility] ([place]) 1 [facility] Department [place] [address] * (ABNORMAL) CBC with auto differential (11/28/2024 [...] ([place]) MCH 28.9 27.1 - 33.3 pg [facility] ([place]) MCHC 31.5(L) 32.3 - 35.7 g/dL [facility] ([place]) RDW CV 11.8 11.1 - 14.9 % [facility]) RDW SD 39.7 35.7 - 48.1 fL [facility] ([place]) NRBC abs 0.00 0.00 - 0.01 K/cumm [facility] ([place]) Blood 11/28/2024 5:45 PM CDT 11/28/2024 5:51 PM CDT Lisa TORRES LAB BLOOD ORDERABLES Final Resu lt [facility] ([place]) 1 [facility] Department [place] [address] * Comprehensive metabolic panel (11/28/2024 5:45 PM CDT) Sodium 138 135 - 145 mmol/L Potassium, pl 3.5 3.3 - 4.9 mmol/L [facility]) Chloride 100 97 - 110 mmol/L [facility]) CO2 26 22 - 32 mmol/L [facility] ([place]) Anion gap 12 2 - 15 mmol/L [facility] ([place]) BUN 10 6 - 25 mg/dL [facility]) Creatinine 0.86 0.80 - 1.30 mg/dL [facility] ([place]) Glucose 150 70 - 199 mg/dL [facility] ([place]) [...] ([place]) AST 18 10 - 50 Units/L [facility] Blood 11/28/2024 5:45 PM CDT 11/28/2024 5:51 PM CDT us Lisa TORRES LAB BLOOD ORDERABLES Final Resu lt Performing Organization Address [facility]/ZIP Co de Phone Number [facility] ([place] 1 [facility] [place] [employer] [place] [address] * Troponin T high-sensitivity 2-hour (11/26/2024 12:55 PM CDT) Trop T hs 12 <=22 ng/L Comment: Interpretive Data For further hscTnT resources including the diagnostic algorithm and an aid in interpretation, copy and paste this link: [email or web address].testcatalog.org/[email or web address] Current Interpretive Data last revised 2020. Trop T hs delta -1 ng/L [facility] ([place]) Trop T hs interp Insignificant [facility] ([place]) Blood 11/26/2024 12:5 5 PM CDT 11/26/2024 12:59 PM CDT us Jorge Mills MD LAB BLOOD ORDERABLE S Final Result Performing Organization Address [facility] Co de Phone Number [facility] ([place] 1 [facility] [place] [employer] [place] [address] * XR Chest 1 Vw Portable (If patient hemodynamically UNstable or UNable to ambulate) (11/26/2024 11:01 AM CDT) Anatomical Region Laterality Modality Body, Chest N/A Computed Radiogr aphy 11/26/2024 11:0 8 AM CDT Narrative 11/26/2024 11:09 AM CDT EXAM DESCRIPTION: XR CHEST 1 VIEW REASON FOR STUDY: chest pain Pt to ED via [facility]. Per Pt last night he had [...] Eh Corley D.O. PS: PS Report ID: [id number] Reading Location: [id number] Procedure Note Eh Corley, DO - 11/26/2024 EXAM DESCRIPTION: XR CHEST 1 VIEW REASON FOR STUDY: chest pain Pt to ED via [facility]. Per Pt last night he had [...] Eh Corley D.O. PS: PS Report ID: [id number] Reading Location: [id number] Jorge Mills MD IMG XR PROCEDURES F [...] 8 AM CDT 11/26/2024 10:51 AM CDT Jorge Mills MD LAB BLOOD ORDERABLE S Final Result [facility] [place] 1 [facility] Department [place] [address] * eGFR (11/26/2024 10:48 AM CDT) Pathologist [facility] eGFR >90 >=60 mL/min/1. 73 m2 Comment: [...] of Race in Diagnosing Kidney Disease, JASN 202). The CKD-EPI equation should not be used for patients with unstable renal function and has not been validated in children and those over 70. Current interpretive data was last reviewed 2021. Blood 11/26/2024 10:4 8 AM CDT 11/26/2024 10:51 AM CDT us Jorge Mills MD LAB BLOOD ORDERABLE S Final Result [facility] ([place] 1 [facility] Department [place] [address] * Differential, auto (11/26/2024 10:48 AM CDT) Neutrophil abs 5.25 1.50 - 6.50 K/cumm Imm gran abs 0.02 0.00 - 0.10 K/cumm [facility] ([place]) Lymphocyte abs 1.74 0.80 - 3.30 K/cumm [facility] ([place]) Monocyte abs 0.68 0.20 - 0.80 K/cumm [facility] ([place]) Eosinophil abs 0.13 0.00 - 0.50 K/cumm [facility] ([place]) Basophil abs 0.06 0.00 - 0.10 K/cumm [facility] ([place]) Neutrophil pct 66.6 % [facility] ([place]) Comment: Interpretive Data Percent cell count reference ranges are not reported, since discordance with absolute values may lead to misinterpretation of CBC data. Current Interpretive Data was last revised on 2017. Imm gran pct 0.3 % [facility] ([place]) Comment: Interpretive Data Percent cell count reference ranges are not reported, since discordance with absolute values may lead to misinterpretation of CBC data. Current Interpretive Data was last revised on 2017. Lymphocyte pct 22.1 % [facility] ([place]) Comment: Interpretive Data Percent cell count reference ranges are not reported, since discordance with absolute values may lead to misinterpretation of CBC data. Current Interpretive Data was last revised on 2017. Monocyte pct 8.6 % [facility] ([place]) Comment: Interpretive Data Percent cell count reference [...] BLOOD ORDERABLE S Final Result [facility] ([place]) 1 [facility] [place] [address] * Thyroid Function [place] (11/26/2024 10:48 AM CDT) Pathologist [facility] TSH 1.34 0.30 - 4.20 mcIUnit/mL Blood 11/26/2024 10:4 8 AM CDT 11/26/2024 11:08 AM CDT us Jorge Mills MD LAB BLOOD ORDERABLE S Final Result Performing Organization Address City/[facility] Co de Phone Number [facility] ([place]) 1 [facility] [employer] [address] * (ABNORMAL) CBC with auto differential (11/26/2024 10:48 AM CDT) WBC 7.88 3.80 - 9.90 K/cumm Hgb 14.8 13.0 - 17.5 g/dL [facility] ([place]) Hct 45.9 38.9 - 50.3 % [facility]) Plt 216 150 - 400 K/cumm [facility] ([place]) MPV 9.4 9.1 - 12.3 fL [facility] ([place]) RBC 5.08 4.30 - 5.80 M/cumm [facility] ([place]) MCV 90.4 81.3 - 96.4 fL [facility] ([place]) MCH 29.1 27.1 - 33.3 pg [facility] ([place]) MCHC 32.2(L) 32.3 - 35.7 g/dL [...] ORDERABLE S Final Result Performing Organization Address City/[facility]/ZIP Co de Phone Number [facility] ([place]) 1 [facility] [employer] [place] [address] * D-dimer, quantitative (11/26/2024 10:48 AM CDT) D-Dimer 416 <=499 ng/mL FEU [facility] ([place]) Comment: Interpretive data FDA approved the D-dimer, [...] 68, VTE cut-off 680 ng/ml FEU. References; Schouten HT et al. Brit Med J. 2013;346:f2492. Justen et al. Annals Int Med. 2015;163:701-11. Current interpretive data was last revised on 2019. Blood 11/26/2024 10:4 8 AM CDT 11/26/2024 11:39 AM CDT us Lisa TORRES LAB BLOOD ORDERABLES Final Resu lt Performing Organization Address City/[facility]/ZIP Co de Phone Number [facility] ([place]) 1 [facility] [employer] [place] [address] * Magnesium (11/26/2024 10:48 AM CDT) Pathologist [facility] Magnesium 1.9 1.4 - 2.5 mg/dL Blood 11/26/2024 10:4 8 AM CDT 11/26/2024 11:08 AM CDT Jorge Mills MD LAB BLOOD ORDERABLE S Final Result Performing Organization Address City/[facility]/ZIP Co de Phone Number [facility] ([place]) 1 [facility] [place] [address] * Lipase (11/26/2024 10:48 AM CDT) Pathologist [facility] Lipase 21 10 - 99 Units/L Blood 11/26/2024 10:4 8 AM CDT 11/26/2024 11:08 AM CDT Jorge Mills MD LAB BLOOD ORDERABLE S Final Result Performing Organization Address [facility] de Phone Number [facility] ([place]) 1 [facility] [place] [address] * (ABNORMAL) Comprehensive metabolic panel (11/26/2024 10:48 AM CDT) Pathologist [facility] Sodium 138 135 - 145 mmol/L Potassium, pl 3.8 3.3 - 4.9 mmol/L [facility] ([place]) Chloride 103 97 - 110 mmol/L [facility] ([place]) CO2 24 22 - 32 mmol/L [facility] ([place]) Anion gap 11 2 - 15 mmol/L [facility]) BUN 14 6 - 25 mg/dL [facility] ([place]) Creatinine 0.78(L) 0.80 - 1.30 mg/dL [facility] ([place]) Glucose 118 70 - 199 mg/dL [facility] ([place]) Comment: Interpretive Data Fasting glucose >/= [...] classification and Diagnosis of Diabetes Diabetes Care 202; 46: S19-S40. Current interpretive data was last [...] BLOOD ORDERABLE S Final Result [facility] ([place]) 1 [facility] Department [place] [address] * ECG 12 lead (11/26/2024 10:41 AM CDT) 11/26/2024 10:4 1 AM CDT Narrative [facility] - 11/26/2024 2:27 PM CDT Vent Rate: 85 bpm RR Interval: 702 msec AL Interval: 150 msec QRS Duration: 138 msec QT Interval: 397 msec QTC Interval: 439 msec P-R-T [place]: 72 - -76 - 31 degrees IMPRESSION: SINUS RHYTHM RIGHT BUNDLE BRANCH BLOCK [120+ ms QRS DURATION, UPRIGHT V1, 40+ ms S IN I/aVL/V4/V5/V6] LEFT ANTERIOR FASCICULAR BLOCK [QRS AXIS <= -45, QR IN I, RS IN II] ABNORMAL ECG NO CHANGE FROM PREVIOUS TRACING NOTED Electronically Signed By: Alexx Bourgeois MD us Jorge Mills MD ECG ORDERABLES Fin al Result [facility] * COLONOSCOPY (01/01/2023 7:26 AM CDT) Anatomical Region Laterality Modality Other Narrative Procedure Note Michel Beltran MD - 01/01/2023 7:26 AM CDT [facility] Patient Name: Marko Morrison Procedure Date: 01/01/2023 7:26 AM Date of : 1950 Admit Type: Outpatient Age: 72 Gender: Male Attending MD: Michel Beltran M.D. Room: [facility] ENDOSCOPY ROOM 2 Note Status: Finalized [...] scope was passed under direct vision. TheColonoscope [id number] was introduced through the anus and advanced [...] 7:26 AM Procedure Code(s): --- Professional --- 00352, Colonoscopy, flexible; with removal of tumor(s), polyp(s), or other lesion(s) by snare technique --- Technical --- 40727, Colonoscopy, flexible; with removal of tumor(s), polyp(s), [...] flexure) K64.9, Unspecified hemorrhoids CPT copyright 2020 [employer]. All rights reserved. The codes documented in this report are preliminary and upon photographic reproduction technician reviewmay be revised to meet current compliance requirements. Recognized by the [employer] for promoting quality in endoscopy Michel Beltran MD ENDOSCOPY PROCEDURES Final Re sult from Last 3 Months or Most Recently Relevant to Health Maintenance Insurance MEDICARE [facility] CHOICE [address]US [address] [place] [id number] MEDICARE [facility] CHOICE PLUS [address] [place] [phone] MEDICARE [facility] OPTIONS PPO Advance Directives For more information, please contact: [phone] * Full Code (Latest Code Status on [...] Morrison Spouse Health Care Agent Care Teams Liner Checker Relationship Specialty Start Date End Date Michel Collins DO PCP - General 08/25/16 Abhishek Forde MD [address] [place] [address] Consulting Physician Cardiology 08/31/17 Amarjit Kelly MD [address] [place] [address] Consulting Physician Psychiatry 08/31/17 Artem White MD [address] [place] [address] Consulting Physician Urology 07/19/20 Tyler Contreras MD [address] [place] [address] Consulting Physician Orthopedic Surgery 09/11/22
[2024-12-03 18:58] LABS: Cholesterol 182 mg/dL (0-200); HDL Direct 35 mg/dL; Triglycerides 199 mg/dL (<150)
[2024-12-03 20:50] LABS: Hemoglobin A1C 6.0 % (<5.7)
== END 2024-12-03 15:24 | disposition home or self-care (01) ==
PROVIDERS: PCP Internal Medicine; Visit Provider Nurse Practitioner
DX: R73.03 Prediabetes (principal); E78.5 Hyperlipidemia, unspecified
CPT/HCPCS: 36415; 80061; 83036